=== PATIENT | male | born 1945 | race Caucasian/White ===

== ENCOUNTER 2019-09-12 09:52 | Day surgery (SDC) | payer MEDICARE, OTHER, SELFPAY ==
[2019-09-12] MEDS: sodium chloride 0.9% 1,000 ML 30 ML IV (10:11)
[2019-09-12 10:21] VITALS: BMI 23.4
[2019-09-12 10:34] VITALS: BP 161/108; PULSE 64; RESP 16; TEMP 36.3; O2SAT 99
--- NOTE | 2019-09-12 10:41 | ANES.PREANE2 ---
Pre-Anesthetic Assessment Pre-Anesthetic Assessment: Height/Weight: Height 1.73 m Weight 69.853 kg Temp Pulse Resp BP Pulse Ox 97.4 F L 64 16 161/108 99 09/12/19 10:34 09/12/19 10:34 09/12/19 10:34 09/12/19 10:34 09/12/19 10:34 Preop Diagnosis: dysphagia Proposed Procedure: Operation Date: 09/12/19 11:35 Proposed Procedures s EGD [id number]/Z12.11/R13.10(Not Applicable) - Lavell Romero MD p Colonoscopy(Not Applicable) - Lavell Romero MD Familial anesthetic complications: None Was Beta Terrell taken within 24 hours: N/A Last intake: Intake Last Liquid Date 09/12/19 Last Liquid Time 00:00 Last Solid Date 09/12/19 Last Solid Time 00:00 Social: Social History: Tobacco, No alcohol and No tobacco Exam: Pre-Anes Outpt Exam: alert, oriented x 3, clear to auscultation bilaterally and regular rate & rhythm Airway: Cervical ROM: WNL MP: 2 Dentition: Full Additional comments: full kramer Pulmonary: Pulmonary: None reported CV/HEM: CV/HEM: HTN and Murmur : : None reported Hepatic: Hepatic: None reported GI: GI: None reported Metabolic: Comments: hypgoglycemia Musc/skel: Musc/skel: None reported Neuropsych: Neuropsych: None reported Anesthetic Plan: ASA status: 3 Risk of > 500 ml blood loss (7ml/kg in children): No PFSH Anesthesia PFSH: Medical History (Updated 09/08/19 @ 10:35 by Lavell Romero MD) Benign essential hypertension Surgical History (Updated 09/08/19 @ 10:33 by Lavell Romero MD) H/O facial fracture repair History of appendectomy History of repair of rotator cuff Family History Other Cancer Diabetes Hypertension Stroke Social History Smoking and tobacco status: never smoked Alcohol intake: never Household members: spouse Housing: House Marital status: Current occupational status: retired Data Anesthesia Cardiac Studies: No Data to Display
[2019-09-12 12:02] VITALS: BP 104/57; PULSE 57; RESP 16; TEMP 36.1; O2SAT 96
[2019-09-12 12:45] VITALS: BP 134/56; PULSE 51; RESP 18; O2SAT 99
[2019-09-13 10:09] LABS: H. Pylori / CLO Test Negative
--- NOTE | 2019-10-12 12:30 | PM.OPSURHP ---
Providers/Chief Complaint Primary Care Provider: Lacey Eid APN Chief Complaint: NO DX SHOWN. History of Present Illness Lasha Maher is a 74 year old male Medications/Allergies Home Medications Medication Instructions Recorded Confirmed Last Taken Type chlorpromazine 25 mg tablet 25 mg PO Q6H 09/06/19 09/12/19 09/11/19 History hydrochlorothiazide 12.5 mg tablet 12.5 mg PO .qpm tab 09/06/19 09/12/19 09/11/19 History multivitamin,zk-usav-dnruyoar 1 tab PO DAILY 09/06/19 09/12/19 Unknown History pantoprazole 40 mg PO DAILY #30 tab 09/12/19 Unknown Rx Allergies Allergy/AdvReac Type Severity Reaction Status Date / Time oxycodone Allergy Unknown Verified 09/08/19 09:32 prednisone Allergy Unknown Verified 09/08/19 09:32 cephalexin [From Keflex] AdvReac ADR-Itching Verified 09/08/19 09:32 PFSH PFSH: Medical History (Updated 09/08/19 @ 10:35 by Lavell Romero MD) Benign essential hypertension Surgical History (Updated 09/08/19 @ 10:33 by Lavell Romero MD) H/O facial fracture repair History of appendectomy History of repair of rotator cuff Family History Other Cancer Diabetes Hypertension Stroke Social History Smoking and tobacco status: never smoked Alcohol intake: never Household members: spouse Housing: House Marital status: Current occupational status: retired Vital Signs Vitals Signs: Last Vital Signs Temp 97.0 F L 09/12/19 12:02 Pulse 51 L 09/12/19 12:45 Resp 18 09/12/19 12:45 BP 134/56 09/12/19 12:45 Pulse Ox 99 09/12/19 12:45 Coding Level of Care Code Acute Surveillance Agent for Gino Lewis
== END 2019-09-12 13:08 | disposition home or self-care (01) ==
PROVIDERS: PCP Nurse Practitioner; Visit Provider Internal Medicine
PROC: 0DJ08ZZ Inspection of Upper Intestinal Tract, Via Natural or Artificial Opening Endoscopic (ICD-10-PCS; CPT 43235; principal; 2019-09-12 11:30)
PROC: 0DJD8ZZ Inspection of Lower Intestinal Tract, Via Natural or Artificial Opening Endoscopic (ICD-10-PCS; CPT 45378; 2019-09-12 11:30)
DX: Z12.11 Encounter for screening for malignant neoplasm of colon (principal); K64.8 Other hemorrhoids; K21.0 Gastro-esophageal reflux disease with esophagitis; K22.10 Ulcer of esophagus without bleeding; K29.70 Gastritis, unspecified, without bleeding; I10 Essential (primary) hypertension
CPT/HCPCS: 12345; 43239; 45378; 87077; 88305; G0121; J2001; J2704; J7030

== ENCOUNTER 2019-12-02 12:16 | Outpatient (CLI) | payer MEDICARE, OTHER, SELFPAY ==
--- NOTE | 2019-12-02 13:00 | CT_ITS ---
WS: [id number] CT CHEST TECHNIQUE: Contrast enhanced CT of the chest with coronal and sagittal reformatted images. CLINICAL INFORMATION: sob COMPARISON: None. DLP: 836.[address] scans at [facility] use at least one of these dose optimization techniques: automat ed exposure control; mA and/or kV adjustment per patient size (includes targeted exams where dose is matched to clinical indication); or iterative reconstruction. FINDINGS: Moderate chronic emphysematous changes. No acute pulmonary infiltrates. No focal pneumonia. No pleura l fluid. Normal caliber thoracic aorta. Aortic calcification. Normal descending thoracic aorta. No mediastinal or hilar lymphadenopathy. Normal endobronchial tree. Thyroid gland is normal. No axillary lymphadeno romaine. Small esophageal hiatal hernia. Adrenal glands are normal. Mild thoracic kyphosis. Hypertrophic changes thoracic spine. CT/CT chest w con* [id number] IMPRESSION: 1. Moderate chronic emphysematous changes. No acute pulmonary infiltrates. 2. No mediastinal or hilar lymphadenopathy. 3. Small esophageal hiatal hernia. 4. Normal caliber thoracic aorta. 5. No other significant findings.
[2019-12-02 13:14] LABS: Blood Urea Nitrogen 17 mg/dL (8-23)
[2019-12-02] MEDS: iohexol 300 mg/mL 100 mL Btl IV (13:19)
== END 2019-12-02 12:17 | disposition home or self-care (01) ==
LOC: RADWPI 12:22
PROVIDERS: Family Provider Nurse Practitioner; PCP Nurse Practitioner; Visit Provider Internal Medicine
DX: R06.02 Shortness of breath (principal); J43.9 Emphysema, unspecified; K44.9 Diaphragmatic hernia without obstruction or gangrene
CPT/HCPCS: 71260; 82565; 84520; Q9967

== ENCOUNTER 2020-02-09 08:39 | Outpatient (CLI) | payer MEDICARE, OTHER, SELFPAY ==
--- NOTE | 2020-02-09 08:55 | USCV_ITS ---
Lasha Maher Age: 74 Gender: M : 1945 Exam Date: 02/09/2020 09:19 Ordering Phys: Alex Meredith MD Technologist: Shannan Burr Exam Location: [facility] [place] Indication: MURMUR BP: 172 / 88 HR: 56 Rhythm: Other Technical Quality: Good MEASUREMENTS (Male / Female) Normal Values 2D ECHO LV Diastolic Diameter PLAX 4.1 cm 4.2 - 5.9 / 3.9 - 5.3 cm LV Systolic Diameter PLAX 2.4 cm LV Chamber Size 4.4 cm IVS Diastolic Thickness 1.7 cm 0.6 - 1.0 / 0.6 - 0.9 cm IVS Systolic Thickness 2.2 cm LVPW Diastolic Thickness 1.3 cm 0.6 - 1.0 / 0.6 - 0.9 cm LVPW Systolic Thickness 1.9 cm RV Chamber Size 3.0 cm LVOT Diameter 2.0 cm LV Ejection Fraction 2D Teich 72.2 % LV Ejection Fraction MOD 2C 68.8 % LV Ejection Fraction 2C AL 70.8 % LA Diameter 3.5 cm LA Width 3.5 cm LA Height 3.6 cm RA Width 3.5 cm RA Height 3.5 cm Aorta at Sinotubular Diameter 2.4 cm M-MODE LV Diastolic Diameter MM 5.1 cm 4.2 - 5.9 / 3.9 - 5.3 cm LV Systolic Diameter MM 3.1 cm LV Ejection Fraction MM Teich 70.9 % IVS Diastolic Thickness MM 1.0 cm 0.6 - 1.0 / 0.6 - 0.9 cm IVS Systolic Thickness MM 1.3 cm LVPW Diastolic Thickness MM 1.1 cm 0.6 - 1.0 / 0.6 - 0.9 cm LVPW Systolic Thickness MM 1.8 cm RV Diastolic Diameter MM 1.8 cm Aortic Annulus Diameter 3.3 cm LA Ao Ratio MM 1.2 MV E Point Septal Separation 0.4 cm DOPPLER AV Peak Velocity 267.5 cm/s LVOT Peak Velocity 106.0 cm/s AV Area Cont Eq vti 1.3 cm squared AV Area Cont Eq pk 1.3 cm squared MV Area PHT 3.4 cm squared MV E' Velocity 46.0 cm/s TV Peak E Velocity 88.0 cm/s Right Atrial Pressure 3.0 mmHg PV Peak Velocity 80.0 cm/s FINDINGS Left Ventricle Normal left ventricular cavity size. Moderate left ventricular hypertrophy. Normal left ventricular systolic function. Left ventricular ejection fraction is estimated at 70 %. No regional wall motion abnormalities. Right Ventricle Normal right ventricular size and systolic function. Normal right ventricular systolic pressure. Right Atrium Normal right atrial size. Right atrial pressure estimated at 3 mm Hg. Left Atrium Mildly increased left atrial size. Mitral Valve Mildly thickened mitral valve. No mitral valve stenosis. Mild mitral valve regurgitation. Aortic Valve Mildly thickened and calcified trileaflet aortic valve. Mild aortic valve stenosis, mean gradient 15 mmHg, WINSOME 1.4 cm squared. Mild aortic valve regurgitation. Tricuspid Valve Structurally normal tricuspid valve. No tricuspid valve stenosis. Trace to mild tricuspid valve regurgitation. Pulmonic Valve Structurally normal pulmonic valve. No pulmonary valve stenosis. Trace pulmonary valve regurgitation. Pericardium No pericardial effusion. Normal sized inferior vena cava. Aorta Normal size aortic root and proximal ascending aorta. CONCLUSIONS 1. Normal left ventricular cavity size and systolic function. Moderate concentric left ventricular hypertrophy. Left ventricular ejection fraction is estimated at 70 %. No regional wall motion abnormalities. 2. Mild aortic valve regurgitation. 3. Right atrial pressure estimated at 3 mm Hg. 4. No intracardiac masses. 5. When compared to the prior echocardiogram dated 02/04/2017 there may not have been any significant change. Karley Lott MD (Electronically Signed) Final Date: 10 February 2020 19:49 S
== END 2020-02-09 08:40 | disposition home or self-care (01) ==
LOC: US 08:45
PROVIDERS: Family Provider Nurse Practitioner; PCP Nurse Practitioner; Visit Provider Family Medicine
DX: I35.1 Nonrheumatic aortic (valve) insufficiency (principal); I51.7 Cardiomegaly; R01.1 Cardiac murmur, unspecified
CPT/HCPCS: 93306

== ENCOUNTER 2020-08-25 15:18 | Inpatient (IN) | payer MEDICARE, OTHER, SELFPAY ==
[2020-08-25] VITALS (11 sets, daily range): BP systolic 139–173; BP diastolic 71–88; PULSE 54–67; RESP 14–18; TEMP 36.5–36.7; O2SAT 95–98; BMI 24.9
--- NOTE | 2020-08-25 15:32 | CTR_ITS ---
PROCEDURE INFORMATION: Exam: CT Head Without Contrast Exam date and time: 08/25/2020 3:40 PM Age: 75 years old Clinical indication: Speech disturbance and weakness, facial; Slurred speech; Prior surgery; Surgery date: 6+ months; Additional info: Symptoms of acute stroke TECHNIQUE: Imaging protocol: Computed tomography of the head without contrast. Total images: 211 Radiation optimization: All CT scans at this facility use at least one of these dose optimization techniques: automated exposure control; mA and/or kV adjustment per patient size (includes targeted exams where dose is matched to clinical indication); or iterative reconstruction. COMPARISON: No relevant prior studies available. RADIATION DOSE METRICS: Total DLP (mGy-cm): 923.87 FINDINGS: Brain: No evidence of active or acute intracranial pathologic process, hemorrhage, or trauma. No visible evidence of diffuse cerebral edema or generalized demyelination. No visible hyperdense or insular ribbon sign. Mild small vessel ischemic disease with senile periventricular leukomalacia. No mass effect. No midline shift. Atrophic changes not inconsistent with the patient's chronological age. Cerebral ventricles: No ventriculomegaly. Bones/joints: Unremarkable. No acute fracture. Paranasal sinuses: Chronic sinusitis with inspissated mucus. Mastoid air cells: Visualized mastoid air cells are well aerated. Soft tissues: Unremarkable. CT/CT head wo con* [id number] IMPRESSION: No evidence of active or acute intracranial pathologic process, hemorrhage, or trauma. Radiation Dose CTDIVOL = (mGy): DLP = 923.87 (mGy-cm)
--- NOTE | 2020-08-25 15:32 | XRR_ITS ---
PROCEDURE INFORMATION: Exam: XR Chest Exam date and time: 08/25/2020 4:03 PM Age: 75 years old Clinical indication: Other: Confusion; Additional info: Reduced breath sounds TECHNIQUE: Imaging protocol: XR of the chest. Views: 1 view. Total images: 1 COMPARISON: CT chest w con* [id number] 12/02/2019 1:17 PM FINDINGS: Lungs: No visible active interstitial or alveolar airspace disease. Suspected component of mild COPD/chronic bronchitis. Pleural spaces: Unremarkable. No pleural effusion. No pneumothorax. Heart/Mediastinum: Cardiac structures and configuration with mild cardiomegaly and arteriosclerosis. Bones/joints: Degenerative disease and degenerative disc disease of visualized cervical spine. XR/XR chest 1V portable [id number] IMPRESSION: Nonacute.
--- NOTE | 2020-08-25 15:32 | CTR_ITS ---
PROCEDURE INFORMATION: Exam: CT Angiography Head With Contrast, Arteriography Exam date and time: 08/25/2020 3:40 PM Age: 75 years old Clinical indication: Speech disturbance and paralysis, transient of limb; Slurred speech; Prior surgery; Surgery date: 6+ months; Surgery type: Facial; Additional info: Right sided weakness TECHNIQUE: Imaging protocol: Computed tomography angiography of the head with contrast. Exam focused on the arteries. 3D rendering (Not supervised by radiologist): MIP and/or 3D reconstructed images were created by the technologist. Total images: 855 Radiation optimization: All CT scans at this facility use at least one of these dose optimization techniques: automated exposure control; mA and/or kV adjustment per patient size (includes targeted exams where dose is matched to clinical indication); or iterative reconstruction. Contrast material: VISIPAQUE 320; Contrast volume: 95 ml; Contrast route: INTRAVENOUS (IV); COMPARISON: CT head wo con* [id number] 08/25/2020 3:55 PM RADIATION DOSE METRICS: Total DLP (mGy-cm): 2184.86 FINDINGS: ANTERIOR CIRCULATION: Right internal carotid artery: Mild atheromatous plaquing of the internal carotid artery terminus without hemodynamically significant stenosis or occlusion. Intracranial segment is patent with no significant stenosis. No aneurysm. Right middle cerebral artery: Unremarkable. No occlusion or significant stenosis. No aneurysm. Right anterior cerebral artery: Unremarkable. No occlusion or significant stenosis. No aneurysm. Left internal carotid artery: Mild atheromatous plaquing of the internal carotid artery terminus without hemodynamically significant stenosis or occlusion. Intracranial segment is patent with no significant stenosis. No aneurysm. Left middle cerebral artery: Unremarkable. No occlusion or significant stenosis. No aneurysm. Left anterior cerebral artery: Absence of the left A1 segment. Left anterior cerebral artery patent via cross-filling from a patent ACOMM. POSTERIOR CIRCULATION: Right vertebral artery: Unremarkable. No occlusion or significant stenosis. No aneurysm. Left vertebral artery: Unremarkable. No occlusion or significant stenosis. No aneurysm. Basilar artery: Unremarkable. No occlusion or significant stenosis. No aneurysm. Right posterior cerebral artery: origin of the right posterior cerebral artery. No hemodynamically significant stenosis or occlusion. Left posterior cerebral artery: Unremarkable. No occlusion or significant stenosis. No aneurysm. Paranasal sinuses: Chronic sinusitis with inspissated mucus. 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 Erosion of the floor of the right maxilla. IMPRESSION: 1. Absence of the left A1 segment. 2. Left anterior cerebral artery patent via cross-filling from a patent ACOMM. 3. Mild atheromatous plaquing of the bilateral internal carotid artery terminus without hemodynamically significant stenosis or occlusion. 4. origin of the right posterior cerebral artery which is a normal anatomical variant. 5. Chronic sinusitis with inspissated mucus. 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 PROCEDURE INFORMATION: Exam: CT Angiography Neck With Contrast Exam date and time: 08/25/2020 3:40 PM Age: 75 years old Clinical indication: Speech disturbance and paralysis, transient of limb; Slurred speech; Prior surgery; Surgery date: 6+ months; Surgery type: Facial; Additional info: Right sided weakness TECHNIQUE: Imaging protocol: Computed tomography angiography of the neck with contrast. 3D rendering (Not supervised by radiologist): MIP and/or 3D reconstructed images were created by the technologist. Radiation optimization: All CT scans at this facility use at least one of these dose optimization techniques: automated exposure control; mA and/or kV adjustment per patient size (includes targeted exams where dose is matched to clinical indication); or iterative reconstruction. Contrast material: VISIPAQUE 320; Contrast volume: 95 ml; Contrast route: INTRAVENOUS (IV); COMPARISON: CT head wo con* [id number] 08/25/2020 3:55 PM RADIATION DOSE METRICS: Total DLP (mGy-cm): 2184.86 FINDINGS: Right common carotid artery: No stenosis. No dissection or occlusion. Right internal carotid artery: No stenosis of the extracranial segment. No dissection or occlusion. Right external carotid artery: No occlusion or stenosis of the origin. Right vertebral artery: No stenosis. No dissection or occlusion. Left common carotid artery: No stenosis. No dissection or occlusion. Left internal carotid artery: No stenosis of the extracranial segment. No dissection or occlusion. Left external carotid artery: No occlusion or stenosis of the origin. Left vertebral artery: No stenosis. No dissection or occlusion. Bones/joints: No acute fracture. Degenerative disease and degenerative disc disease of the cervical spine most advanced C4/C5, C5/C6 and to a less significant degree C6/C7. Soft tissues: Prominent middle mediastinal lymph nodes within the field of view a dominant aortopulmonic node measuring 13 mm in the short axis. Calcified granulomas of antecedent disease. No significant soft tissue swelling. Lungs: Evidence of air trapping of COPD/chronic bronchitis with mild senile fibrosis. CT/CT angio headneck* [id number] IMPRESSION: 1. No stenosis or occlusion. 2. Prominent middle mediastinal lymph nodes within the field of view. 3. Calcified granulomas of antecedent disease. 4. Degenerative disease and degenerative disc disease of the cervical spine. 5. COPD/chronic bronchitis. REFERENCES: NASCET CRITERIA. The degree of internal carotid artery stenosis is based on NASCET criteria. Normal is no stenosis. Mild is less than 50% stenosis. Moderate is 50-69% stenosis. Severe is 70% to 99% stenosis. Total occlusion is no detectable patent lumen. Radiation Dose CTDIVOL = (mGy): DLP = 2184.86~2184.86 (mGy-cm)
--- NOTE | 2020-08-25 15:32 | ECG_ITS ---
[facility] Test Date: 2020-08-25 Pat Name: Lasha Maher Department: Room: Gender: Male Gin Feeder: : 1945 Requested By: Chico Espinoza Order Number: [id number] Reading MD: TWILA TODD Measurements Intervals [place] Rate: 63 P: 55 IL: 155 QRS: -1 QRSD: 102 T: 85 QT: 460 QTc: 473 Interpretive Statements SINUS RHYTHM WITH FREQUENT SUPRAVENTRICULAR PREMATURE COMPLEXES POSSIBLE LEFT ATRIAL ENLARGEMENT [-0.1mV P WAVE IN V1/V2] INCOMPLETE RIGHT BUNDLE BRANCH BLOCK [90+ ms QRS DURATION, TERMINAL R IN V1/V2, 40+ ms S IN I/aVL/V4/V5/V6] POSSIBLE LEFT VENTRICULAR HYPERTROPHY [VOLTAGE CRITERIA PLUS LAE OR QRS WIDENING] MODERATE T-WAVE ABNORMALITY, CONSIDER LATERAL ISCHEMIA [-0.1+ mV T WAVE IN I/aVL/V5/V6] No previous ECG available for comparison Electronically Signed On 08-26-2020 22:25:29 CDT by TWILA TODD [email or web address]
--- NOTE | 2020-08-25 15:36 | W.ED.NEUROSD ---
HPI - Neuro Symptoms/Deficit General: Chief Complaint: Neuro Symptoms/Deficit Stated Complaint: NEURO SYMPTOMS Time Seen by Provider: 08/25/20 15:28 History of Present Illness: HPI Narrative: The patient is a 75-year-old male with past medical history hypertension and smoker. He comes to the ER complaining of slurred speech, right arm and right leg weakness since last night around 9:30 PM. He woke today and continued having weakness and speech difficulties but continued to walk around his house. He says his right arm and leg feel heavy. He says he fell a couple times and scraped his right gonzáles but has no significant injuries. They came to the ER and he does have slurred speech, as well as weakness to his right leg and right arm. He does have movement against gravity and is able to walk. No significant facial droop Timing confirmed by: spouse Location: speech, dysarthria, right arm and right leg Severity: moderate Quality: weak Relieving factors: none Exacerbating factors: none Context: sudden onset Associated symptoms: Reports no associated symptoms; Deny chest pain Review of Systems General: Reports: 10 or more systems reviewed and unremarkable except in HPI and below Const: Denies: fatigue Eyes: Denies: change in vision, blurry vision or eye redness ENMT: Reports: other (Slurred speech); Denies: throat pain, swelling of lips/tongue, ear or mastoid pain or nasal congestion Card: Denies: chest pain, palpitations, irregular heart rhythm, edema, dyspnea on exertion or orthopnea Resp: Denies: dyspnea, productive cough or non-productive cough GI: Denies: abdominal pain, diarrhea or GI cramping : Denies: flank pain, urinary frequency or urinary urgency Musc: Denies: neck pain, back pain, extremity pain, joint pain, joint redness, limited range of motion or muscle weakness Skin/Breast: Denies: rash, pruritus, erythema, skin pain or skin tenderness Neuro: Reports: other (Weakness in right arm and leg) Psych: Denies: anxiety or depression Endo: Denies: polyuria All/Imm: Denies: urticaria, throat swelling or tongue swelling PFS ED PFSH: Medical History (Updated 08/25/20 @ 18:24 by Chico Espinoza MD) Benign essential hypertension Surgical History H/O facial fracture repair History of appendectomy History of repair of rotator cuff Family History Other Cancer Diabetes Hypertension Stroke Social History Smoking and tobacco status: never smoked Alcohol intake: never Household members: spouse Housing: House Marital status: Current occupational status: retired History of recent travel: No Physical Exam Const: COMMON NORMALS: no acute distress, average body habitus, patient oriented x3, no limitations, healthy appearing, alert and well nourished GENERAL APPEARANCE: cooperative, comfortable, well kempt and well developed ORIENTATION/CONSCIOUSNESS: Yes awake, Yes oriented to person, Yes oriented to place and Yes oriented to time HENMT: COMMON NORMALS: normocephalic, external ears normal and Normal external nose present HEAD & SCALP: normal to inspection and normocephalic NOSE: Normal external nose present EXTERNAL EAR: Yes external ears normal MOUTH: Normal oral and palatal mucosa present THROAT: posterior oropharynx normal OTHER: The patient has significant dysarthria Eye: COMMON NORMALS: Equal, round and reactive pupils present and EOMs intact bilaterally GENERAL EYE: appearance normal, both eyes and all related structures PUPIL: Yes Equal, round and reactive pupils present Neck/C-Spine: COMMON NORMALS: full ROM, no lymphadenopathy, no meningeal signs and no JVD GENERAL: Yes normal visual inspection Lymph: LYMPHATIC: no lymphadenopathy noted Chest: COMMONS NORMALS: normal inspection of the chest and normal palpation of entire chest wall Resp: COMMON NORMALS: normal respiratory effort, No retractions, No use of accessory muscles, clear to auscultation bilaterally and percussion normal EFFORT & INSPECTION: Yes able to speak in complete sentences AUSCULTATION: clear to auscultation bilaterally PERCUSSION: percussion normal Cardio: COMMON NORMALS: no JVD, regular rate, regular rhythm, S1 normal heart sound present, S2 normal heart sound present and Peripheral pulses 2+ throughout RATE: regular rate RHYTHM: regular rhythm HEART SOUNDS: S1 normal heart sound present and S2 normal heart sound present PERIPHERAL PULSES: Peripheral pulses 2+ throughout GI: COMMON NORMALS: Normal to inspection, nondistended, normoactive bowel sounds present, Soft to palpation, non-tender and no masses INSPECTION: Yes normal to inspection PALPATION: Yes Soft to palpation : COMMON NORMALS: Yes no CVA tenderness BLADDER/KIDNEY EXAM: Yes no CVA tenderness Back/Pelvis: COMMON NORMALS: no CVA tenderness, thoracic and lumbar spine normal to inspection, no thoracic nor lumbar tenderness and thoraco-lumbar ROM normal Extremity: COMMON NORMALS: normal to inspection, full ROM, capillary refill normal, no joint enlargement and no pedal edema GENERAL: Yes normal exam except as noted Neuro: COMMON NORMALS: patient oriented x3, CN's II-XII intact bilaterally, moves all extremities, no focal motor deficits and no sensory deficits noted SENSORIUM/ORIENTATION: Yes alert, Yes oriented to person, Yes oriented to place and Yes oriented to time MENINGEAL SIGNS: Yes no meningeal signs SPEECH: Other neuro speech findings (Significant dysarthria) GAIT: Yes Unable to assess gait OTHER: The patient has weakness to right upper and lower extremities. He has movement against gravity. No significant ataxia. He does have pronator drift as well. Psych: COMMON NORMALS: mental status grossly normal, Normal thought process present, cooperative and normal affect APPEARANCE: Yes well kempt ATTITUDE: Yes calm THOUGHT PROCESS: Normal thought process present Skin: COMMON NORMALS: no rashes or lesions noted GENERAL SKIN EXAM: no rashes or lesions noted Course Vital Signs: Vital signs: Vital Signs Temperature 97.9 F 08/25/20 17:58 Pulse Rate 59 L 08/25/20 17:58 Respiratory Rate 18 08/25/20 17:58 Blood Pressure 158/71 08/25/20 17:58 Pulse Oximetry 95 08/25/20 17:58 MDM - Neuro Symptoms/Deficit MDM Narrative: Medical decision making narrative: The patient is having a right-sided stroke based on his symptoms. NIH scale is 5. Symptom onset 9:30 PM last night which is well outside of the window for TPA. CT head and head and neck CT angiogram showed no significant defects. Discussed with [facility] neurologist Dr. Griffin. She recommended keeping for observation and MRI, A1c, lipid panel, echo, loop monitor for 30 days, baby aspirin, statin, Lipitor. Discussed with Dr. Johns who accepts for observation. Lab Data: Labs: Lab Results 08/25/20 08/25/20 08/25/20 Range/Units 16:03 16:05 16:05 WBC 9.4 (4.0-10.0) 10^3/ uL RBC 4.46 (4.1-5.3) 10^6/u L Hgb 12.6 (11.7-16.6) g/dL Hct 38.2 L (42.0-52.0) % MCV 85.7 (80-94) fL MCH 28.3 (28.0-34.0) pg MCHC 33.0 (30.0-36.0) g/dL RDW 13.2 (12.1-15.1) % Plt Count 194 (130-400) 10^3/c mm MPV 9.8 (7.4-10.4) fL Neut % (Auto) 80.7 % Lymph % (Auto) 10.9 % Kingfisher % (Auto) 6.2 % Eos % (Auto) 1.2 % Baso % (Auto) 0.5 % Neut # (Auto) 7.61 (1.8-7.7) 10^3/u L Lymph # (Auto) 1.0 (0.8-4.8) 10^3/u L Kingfisher # (Auto) 0.6 (0.2-0.9) 10^3/u L Eos # (Auto) 0.1 (0.0-0.8) 10^3/u L Baso # (Auto) 0.1 (0.0-0.1) 10^3/u L Nucleated RBC % (a uto) 0 % Nucleated RBCs # 0.0 /100WBC PT (12.1-14.9) SECO NDS INR (0.8-1.2) APTT (23.9-36.7) SECO NDS Sodium 138 (136-145) mmol/L Potassium 3.8 (3.5-5.1) mmol/L Chloride 103 (98-107) mmol/L Carbon Dioxide 26 (22-29) mmol/L Anion Gap 12.8 (5-19) BUN 17 (8-23) mg/dL Creatinine 0.9 (0.7-1.2) mg/dL GFR Calculation Not Reportable Glucose 101 (65-115) mg/dL POC Glucose 104 (70-110) mg/dL Calculated Osmolal ity 288 (285-295) mOsm/k g Calcium 8.9 (8.5-10.5) mg/dL Total Bilirubin 0.6 (0.15-1.2) mg/dL AST 29 (0-40) U/L ALT 26 (0-41) U/L Alkaline Phosphata se 66 (40-130) IU/L Total Protein 6.5 L (6.6-8.7) g/dL Albumin 4.2 (3.5-5.2) g/dL Globulin 2.3 (1.3-4.6) g/dL 08/25/20 Range/Units 16:22 WBC (4.0-10.0) 10^3/ uL RBC (4.1-5.3) 10^6/u L Hgb (11.7-16.6) g/dL Hct (42.0-52.0) % MCV (80-94) fL MCH (28.0-34.0) pg MCHC (30.0-36.0) g/dL RDW (12.1-15.1) % Plt Count (130-400) 10^3/c mm MPV (7.4-10.4) fL Neut % (Auto) % Lymph % (Auto) % Kingfisher % (Auto) % Eos % (Auto) % Baso % (Auto) % Neut # (Auto) (1.8-7.7) 10^3/u L Lymph # (Auto) (0.8-4.8) 10^3/u L Kingfisher # (Auto) (0.2-0.9) 10^3/u L Eos # (Auto) (0.0-0.8) 10^3/u L Baso # (Auto) (0.0-0.1) 10^3/u L Nucleated RBC % (a uto) % Nucleated RBCs # /100WBC PT 14.00 (12.1-14.9) SECO NDS INR 1.05 (0.8-1.2) APTT 31.4 (23.9-36.7) SECO NDS Sodium (136-145) mmol/L Potassium (3.5-5.1) mmol/L Chloride (98-107) mmol/L Carbon Dioxide (22-29) mmol/L Anion Gap (5-19) BUN (8-23) mg/dL Creatinine (0.7-1.2) mg/dL GFR Calculation Glucose (65-115) mg/dL POC Glucose (70-110) mg/dL Calculated Osmolal ity (285-295) mOsm/k g Calcium (8.5-10.5) mg/dL Total Bilirubin (0.15-1.2) mg/dL AST (0-40) U/L ALT (0-41) U/L Alkaline Phosphata se (40-130) IU/L Total Protein (6.6-8.7) g/dL Albumin (3.5-5.2) g/dL Globulin (1.3-4.6) g/dL Discharge Plan Discharge Patient Disposition: Placed in Observation Admit Provider: Dexter Johns Clinical Impression: Cerebrovascular accident Coding Level of Care Code ED Applications Consultant for Марияg Fwd Exam Comprehensive
[2020-08-25] MEDS: iodixanol 320 mg/mL 100mL Btl IV (15:47)
[2020-08-25 16:08] LABS: Glucose Point of Care 104 mg/dL (70-110)
[2020-08-25 16:19] LABS: Basophils # 0.1 10^3/uL (0.0-0.1); Basophils % 0.5 %; Eosinophils # 0.1 10^3/uL (0.0-0.8); Eosinophils % 1.2 %; Hematocrit 38.2 % (42.0-52.0); Hemoglobin 12.6 g/dL (11.7-16.6); Lymphocytes % 10.9 %; Mean Corpuscular Hemoglobin 28.3 pg (28.0-34.0); Mean Corpuscular Volume 85.7 fL (80-94); Mean Platelet Volume 9.8 fL (7.4-10.4); Monocytes # 0.6 10^3/uL (0.2-0.9); Monocytes % 6.2 %; Neutrophils # 7.61 10^3/uL (1.8-7.7); Neutrophils % 80.7 %; Nucleated Red Blood Cells % 0 %; Platelet Count 194 10^3/cmm (130-400); Red Blood Count 4.46 10^6/uL (4.1-5.3); Red Cell Distribution Width 13.2 % (12.1-15.1); White Blood Count 9.4 10^3/uL (4.0-10.0)
[2020-08-25 16:45] LABS: INR 1.05 (0.8-1.2)
[2020-08-25 16:48] LABS: Partial Thromboplastin Time 31.4 SECONDS (23.9-36.7)
[2020-08-25 17:00] LABS: Alanine Aminotransferase 26 U/L (0-41); Albumin Level 4.2 g/dL (3.5-5.2); Alkaline Phosphatase 66 IU/L (40-130); Anion Gap 12.8 (5-19); Aspartate Amino Transferase 29 U/L (0-40); Blood Urea Nitrogen 17 mg/dL (8-23); Calcium 8.9 mg/dL (8.5-10.5); Carbon Dioxide 26 mmol/L (22-29); Chloride 103 mmol/L (98-107); Globulin 2.3 g/dL (1.3-4.6); Glucose 101 mg/dL (65-115); Osmolality Calculated 288 mOsm/kg (285-295); Potassium 3.8 mmol/L (3.5-5.1); Sodium 138 mmol/L (136-145); Total Bilirubin 0.6 mg/dL (0.15-1.2); Total Protein 6.5 g/dL (6.6-8.7)
--- NOTE | 2020-08-25 18:05 | P.HP_ITS ---
Providers/Chief Complaint Admitting Physician: Dexter Johns MD Primary Care Provider: Lacey Eid APN Chief Complaint: NEURO SYMPTOMS History of Present Illness Lasha Maher is a 75 year old male with past medical history of hypertension and GERD, came in with chief complaint of right-sided leg and arm weakness started last evening, is also complaining of slurred speech, and unsteady gait ,patient denies any, headache, palpitation, dizziness, chest pain shortness of breath, nausea vomiting. Upon arrival in the ER he was worked up for above-mentioned complaint. CT head without contrast: No acute intracranial pathology, CTA head and neck: No significant stenosis. EKG:no acute ST-T wave changes, incomplete right bundle branch, LVH. CBC, CMP is normal. Patient was discussed with on-call neurologist at [facility] for acute CVA, he was not a TPA candidate, it has been advised, to keep the patient, and do further work-up. 2D echo done: 01/2020: Normal left ventricular cavity size and systolic function. Moderate concentric left ventricular hypertrophy.Left ventricular ejection fraction is estimated at 70 %. No regional wall motion abnormalities.Mild mitral valve regurgitation.Mild aortic valve stenosis, mean gradient 15 mmHg, WINSOME 1.4 cm squared. Mild aortic valve regurgitation. Review of Systems Const: Denies: fever(s), chills, body aches, change in appetite or diaphoresis Card: Denies: palpitations, edema, swelling of feet/ankles, dyspnea on exertion, orthopnea or leg pain with exertion Resp: Denies: dyspnea, productive cough, wheezing or pain on inspiration GI: Denies: abdominal pain, nausea, vomiting, diarrhea or constipation : Denies: flank pain or difficulty urinating Musc: Denies: back pain, extremity pain or extremity swelling Neuro: Denies: headache(s) or confusion Medications/Allergies Home Medications Medication Instructions Recorded Confirmed Last Taken Type hydrochlorothiazide 12.5 mg tablet 12.5 mg PO BEDTIME tab 09/06/19 08/25/20 08/24/20 History pantoprazole 40 mg tablet,delayed 40 mg PO BID #60 tab 10/12/19 08/25/20 08/24/20 Rx release metoclopramide HCl 5 mg PO TID 08/25/20 08/25/20 Unknown History dqlfuktauczg-iwjgitcj-cjlagz 1 tab PO DAILY 08/25/20 08/25/20 08/24/20 History [Multivitamin 50 Plus] Allergies Allergy/AdvReac Type Severity Reaction Status Date / Time oxycodone Allergy Unknown Verified 08/25/20 15:26 prednisone Allergy Unknown Verified 08/25/20 15:26 cephalexin [From Keflex] AdvReac ADR-Itching Verified 08/25/20 15:26 PFSH Acute PFSH: Medical History (Updated 08/25/20 @ 18:24 by Chico Espinoza MD) Benign essential hypertension Surgical History H/O facial fracture repair History of appendectomy History of repair of rotator cuff Family History Other Cancer Diabetes Hypertension Stroke Social History Smoking and tobacco status: never smoked Alcohol intake: never Household members: spouse Housing: House Marital status: Current occupational status: retired History of recent travel: No Vitals/I&O/Wt Last Vital Signs Temp 97.9 F 08/25/20 17:58 Pulse 59 L 08/25/20 17:58 Resp 18 08/25/20 17:58 BP 158/71 08/25/20 17:58 Pulse Ox 95 08/25/20 17:58 Weight last 48 hrs Weight 74.389 kg Physical Exam Const: COMMON NORMALS: patient oriented x3 HENMT: COMMON NORMALS: normocephalic and atraumatic Chest: COMMONS NORMALS: normal inspection of the chest CHEST: Yes Symmetrical chest wall rise Resp: COMMON NORMALS: clear to auscultation bilaterally AUSCULTATION: clear to auscultation bilaterally Cardio: COMMON NORMALS: regular rate, regular rhythm, S1 normal heart sound present, S2 normal heart sound present, No gallops present (Cardio), No rub (Cardio) and Peripheral pulses 2+ throughout RATE: regular rate RHYTHM: regular rhythm HEART SOUNDS: S1 normal heart sound present and S2 normal heart sound present PERIPHERAL PULSES: Peripheral pulses 2+ throughout OTHER: Ejection systolic murmur present in aortic area. PSM in mitral area GI: COMMON NORMALS: Normal to inspection, nondistended, normoactive bowel sounds present, Soft to palpation, non-tender, No hepatosplenomegaly present and no masses AUSCULTATION: Yes normoactive bowel sounds PALPATION: Yes Soft to palpation and Yes No hepatosplenomegaly present RECTAL EXAM: Yes deferred Extremity: COMMON NORMALS: no clubbing, cyanosis or edema and no pedal edema Neuro: COMMON NORMALS: patient oriented x3, CN's II-XII intact bilaterally, moves all extremities, no focal motor deficits and no sensory deficits noted Data : 08/25/20 16:05 08/25/20 16:05 A&P Assessment and plan (1) Cerebrovascular accident: Acute CVA/TIA : Patient is reporting right-sided weakness, on my exam motor strength is intact, sensation intact. No slurred speech, no dysphagia. 2D echo Telemetry Possible MRI brain without contrast Possible Holter monitoring Aspirin 81 mg p.o. daily Plavix 75 mg p.o. daily Lipitor 40 mg p.o. daily Status: Acute (2) Benign essential hypertension: Status: Acute (3) GERD with esophagitis: Continue Protonix 40 MG PO BID. Status: Acute Additional A&P Information CODE STATUS: Full code DVT prophylaxis: SCDs Disposition: Home Attestations Medical Necessity Statement*: Patient needs to be in hospital for management of acute CVA. Anticipated length of stay greater than 2 midnights Coding Level of Care Code Acute Engineering Mathematician for Chg Fwd Exam Detailed Diagnoses Cerebrovascular accident I63.9 Benign essential hypertension I10 GERD with esophagitis K21.0
[2020-08-25 18:15] LABS: Add Urine Microscopic? NO; Charge for UA Resulting for Rev
[2020-08-25 18:21] LABS: Bilirubin Urine Neg (Negative); Blood Urine Neg (Negative); Glucose Urine UA Norm (Normal); Ketones Urine Negative (Negative); Leukocyte Esterase Urine Negative (Negative); Nitrate Urine Negative (Negative); Protein Urine Neg (Negative); Urine Appearance Clear (CLEAR); Urine Color Yellow (Yellow); Urobilinogen Urine Norm (Negative); pH Urine 6.5 (5-7)
[2020-08-25 18:30] LABS: Amphetamines Screen Urine Negative (Negative); Barbiturates Screen Urine Negative (Negative); Benzodiazepines Screen Urine Negative (Negative); Cocaine Screen Urine Negative (Negative); Opiate Screen Urine Negative (Negative); PCP Screen Urine Negative (Negative); THC Screen Urine Negative (Negative)
[2020-08-25] MEDS: pantoprazole DR 40 mg Tablet PO (18:44)
[2020-08-25] MEDS: aspirin 81 mg EC Tablet PO (18:44)
[2020-08-25] MEDS: clopidogrel 75 mg Tablet PO (18:44)
[2020-08-25] MEDS: atorvastatin 40 mg Tablet PO (21:18)
[2020-08-25 21:19] LABS: Glucose Point of Care 111 mg/dL (70-110)
[2020-08-26] VITALS (9 sets, daily range): BP systolic 140–165; BP diastolic 68–78; PULSE 45–56; RESP 15–61; TEMP 36.4–36.8; O2SAT 95–97
--- NOTE | 2020-08-26 | USCV_ITS ---
Lasha Maher Age: 75 Gender: M : 1945 Exam Date: 08/26/2020 09:25 Ordering Phys: Dexter Johns MD Technologist: Pamela Irivn Exam Location: [facility] [place] Indication: AC Stroke BP: 150 / 69 HR: 49 Rhythm: Sinus Technical Quality: Adequate MEASUREMENTS (Male / Female) Normal Values 2D ECHO LV Diastolic Diameter PLAX 4.0 cm 4.2 - 5.9 / 3.9 - 5.3 cm LV Systolic Diameter PLAX 2.4 cm LV Chamber Size 4.5 cm IVS Diastolic Thickness 1.9 cm 0.6 - 1.0 / 0.6 - 0.9 cm IVS Systolic Thickness 2.1 cm LVPW Diastolic Thickness 1.7 cm 0.6 - 1.0 / 0.6 - 0.9 cm LVPW Systolic Thickness 2.0 cm RV Chamber Size 3.2 cm LVOT Diameter 2.1 cm LV Ejection Fraction 2D Teich 70.5 % LV Ejection Fraction MOD 2C 73.9 % LV Ejection Fraction 2C AL 75.9 % LA Diameter 3.3 cm LA Width 3.1 cm LA Height 4.5 cm RA Width 3.2 cm RA Height 5.1 cm Aorta at Sinotubular Diameter 2.5 cm M-MODE LV Diastolic Diameter MM 5.5 cm 4.2 - 5.9 / 3.9 - 5.3 cm LV Systolic Diameter MM 3.3 cm LV Ejection Fraction MM Teich 69.3 % IVS Diastolic Thickness MM 1.3 cm 0.6 - 1.0 / 0.6 - 0.9 cm IVS Systolic Thickness MM 1.5 cm LVPW Diastolic Thickness MM 1.5 cm 0.6 - 1.0 / 0.6 - 0.9 cm LVPW Systolic Thickness MM 2.1 cm RV Diastolic Diameter MM 1.3 cm Aortic Annulus Diameter 3.5 cm LA Ao Ratio MM 1.1 MV E Point Septal Separation 0.4 cm DOPPLER AV Peak Velocity 262.0 cm/s LVOT Peak Velocity 108.0 cm/s AV Area Cont Eq vti 1.5 cm squared AV Area Cont Eq pk 1.5 cm squared MV Area PHT 3.4 cm squared Mitral E to A Ratio 0.9 MV E' Velocity 43.5 cm/s Mitral E to MV E' Ratio 14.4 Mitral E to LV E' Lateral Ratio 15.8 Mitral E to LV E' Septal Ratio 13.2 TR Peak Velocity 316.0 cm/s TR Peak Gradient 39.9 mmHg TV Peak E Velocity 42.0 cm/s Right Atrial Pressure 3.0 mmHg Pulmonary Artery Systolic Pressu 42.9 mmHg PV Peak Velocity 86.0 cm/s RV Acceleration Time 0.1 s RV Ejection Time 0.3 s RV AcT/ET 0.3 FINDINGS Left Ventricle Normal left ventricular cavity size. Normal left ventricular systolic function. No regional wall motion abnormalities. Left ventricular ejection fraction is estimated at 60 %. Grade I/IV diastolic dysfunction (abnormal relaxation filling pattern), normal to mildly elevated filling pressures. Right Ventricle The right ventricle is normal in size and function. Right Atrium The right atrium is normal in size. Left Atrium Moderately increased left atrial size. Mitral Valve Moderately thickened mitral valve. No mitral valve stenosis. Moderate to severe mitral valve regurgitation. Aortic Valve Moderate aortic valve calcification. Moderate aortic valve stenosis, mean gradient 15.3 mmHg, WINSOME 1.5 cm squared. Mild aortic valve regurgitation. Tricuspid Valve Moderate tricuspid valve regurgitation. Pulmonic Valve Structurally normal pulmonic valve without significant stenosis. There is no pulmonic regurgitation. Pericardium Normal pericardium without effusion. Aorta Normal ascending aorta dimension. CONCLUSIONS 1-Normal left ventricular cavity size. Normal left ventricular systolic function. No regional wall motion abnormalities. Left ventricular ejection fraction is estimated at 60 %. Grade I/IV diastolic dysfunction (abnormal relaxation filling pattern), normal to mildly elevated filling pressures. 2-Moderate aortic valve calcification. Moderate aortic valve stenosis, mean gradient 15.3 mmHg, WINSOME 1.5 cm squared. Mild aortic valve regurgitation. 3-Moderately thickened mitral valve. No mitral valve stenosis. Moderate to severe mitral valve regurgitation. 4-Moderately increased left atrial size. 5-Right atrial pressure is around 5 mm of mercury. 6-When compared to the prior echocardiogram dated February 10, 2020 mitral valve regurgitation has worsened from moderate to severe category, otherwise no interval change. Abraham Mariano MD (Electronically Signed) Final Date: 26 Aug 2020 20:37 S
[2020-08-26 05:36] LABS: Basophils # 0.1 10^3/uL (0.0-0.1); Basophils % 0.8 %; Eosinophils # 0.2 10^3/uL (0.0-0.8); Eosinophils % 2.8 %; Hematocrit 39.5 % (42.0-52.0); Hemoglobin 12.7 g/dL (11.7-16.6); Lymphocytes # 1.4 10^3/uL (0.8-4.8); Lymphocytes % 18.4 %; Mean Corpuscular HGB Conc 32.2 g/dL (30.0-36.0); Mean Corpuscular Hemoglobin 28.3 pg (28.0-34.0); Monocytes # 0.6 10^3/uL (0.2-0.9); Monocytes % 7.1 %; Neutrophils # 5.46 10^3/uL (1.8-7.7); Neutrophils % 70.4 %; Nucleated Red Blood Cells % 0 %; Platelet Count 185 10^3/cmm (130-400); Red Blood Count 4.49 10^6/uL (4.1-5.3); Red Cell Distribution Width 13.4 % (12.1-15.1); White Blood Count 7.8 10^3/uL (4.0-10.0)
[2020-08-26 05:57] LABS: Anion Gap 13.8 (5-19); Blood Urea Nitrogen 17 mg/dL (8-23); Calcium 8.8 mg/dL (8.5-10.5); Carbon Dioxide 23 mmol/L (22-29); Chloride 103 mmol/L (98-107); Chol HDL Ratio 4.22 mg/dL (1.0-5.00); Cholesterol 156 mg/dL (0-200); Glucose 118 mg/dL (65-115); HDL Cholesterol 37 mg/dL (60-100); LDL Cholesterol Calculated 96 mg/dL (50-129); LDL HDL Ratio 2.59 RATIO (0.00-3.22); Osmolality Calculated 285 mOsm/kg (285-295); Potassium 3.8 mmol/L (3.5-5.1); Sodium 136 mmol/L (136-145); Triglycerides 114 mg/dL (0-150)
[2020-08-26] MEDS: pantoprazole DR 40 mg Tablet PO ×2 (08:17→17:25)
[2020-08-26] MEDS: aspirin 81 mg EC Tablet PO (08:17)
[2020-08-26] MEDS: clopidogrel 75 mg Tablet PO (08:17)
--- NOTE | 2020-08-26 10:33 | PC.NURSE ---
Dr beth on unit for assessment and discussion of plan of care instructions to place order for and event monitor to be placed tomorrow waiting other test results and recommendations of PT evaluation
--- NOTE | 2020-08-26 10:57 | PC.NURSE ---
Dr beth on unit verbal instructions to obtain speech eval and treat to start tomorrow
--- NOTE | 2020-08-26 11:37 | PC.CHAP ---
Pastoral Care Encounter/Spiritual Assessment Type of Contact [] Declined estate and trust tax principal visit [] Patient/Family/Request visit [] Outpatient visit [] Follow-up visit [] Physician referral [] Code/Alert [XX] Routine visit [] Staff referral [] Actively dying [] Patient sleeping [] Family support [] [] Out of room [] Palliative care [] [XX] Receiving care in room [] Pre-surgical visit [] Trauma [] Long length of stay [] ICU visit [] Other: Relational/Emotional Strength [] Patient feels connected with others/family/visitors/staff [] Distress [] Loneliness/isolation [] Abandonment Spirituality of Patient [] Person of Courtney [] Attends Zoroastrianism of their Courtney [] Believes in Prayer [] Reads Bible or Roman Catholic materials [] There are Spiritual issues to be addressed Pattern Cleaner Interventions [] Prayer [] Active listening [] Non-anxious presence [] Spiritual/emotional support [] Crisis/trauma care [] Spiritual counseling [] Bereavement support [] Provided bereavement packet [] Provided Bible/devotional materials [] Provided toy/stuffed animal, coloring book to patient or family member [] Provided Communion [] Anointing/[place] [] Salvation [] Completed spiritual assessment [] Other: Impact on Illness or Injury [] Angry [] Fearful [] Anxious [] Often cries [] Exhaustion [] Unable to work [] Unable to attend yarsani [] Unable to walk/stand [] Unable to read [] Unable to drive [] Unable to eat/drink [] Unable to sleep [] Unable to be with family [] Patient intubated [] Other: Summary Time spent with patient
--- NOTE | 2020-08-26 12:35 | P.PN_ITS ---
Subjective Subjective: Interval history: Patient is doing well, deny any new complaint.Participating with physical therapy. Vitals/I&O/Wt Last Vital Signs Temp 97.7 F 08/26/20 07:25 Pulse 49 L 08/26/20 07:25 Resp 20 H 08/26/20 07:25 BP 150/69 08/26/20 07:25 Pulse Ox 96 08/26/20 07:25 08/25/20 08/26/20 08/26/20 22:59 06:59 14:59 Intake Total 220 / 220 360 / 360 Output Total 201 / 203 Balance -2 / -2 360 / 360 Weight last 48 hrs Weight 72.711 kg Weight 74.389 kg Physical Exam Const: COMMON NORMALS: patient oriented x3 HENMT: COMMON NORMALS: normocephalic and atraumatic HEAD & SCALP: normocephalic and atraumatic Chest: COMMONS NORMALS: normal inspection of the chest CHEST: Yes Symmetrical chest wall rise Resp: COMMON NORMALS: clear to auscultation bilaterally AUSCULTATION: clear to auscultation bilaterally Cardio: COMMON NORMALS: regular rate, regular rhythm, S1 normal heart sound present, S2 normal heart sound present, No gallops present (Cardio), No rub (Cardio) and Peripheral pulses 2+ throughout RATE: regular rate RHYTHM: regular rhythm HEART SOUNDS: S1 normal heart sound present and S2 normal hear t sound present PERIPHERAL PULSES: Peripheral pulses 2+ throughout OTHER: Ejection systolic murmur present in aortic area. PSM in mitral area GI: COMMON NORMALS: Normal to inspection, nondistended, normoactive bowel sounds present, Soft to palpation, non-tender, No hepatosplenomegaly present and no masses AUSCULTATION: Yes normoactive bowel sounds PALPATION: Yes Soft to palpation and Yes No hepatosplenomegaly present RECTAL EXAM: Yes deferred Extremity: COMMON NORMALS: no clubbing, cyanosis or edema and no pedal edema Neuro: COMMON NORMALS: patient oriented x3, CN's II-XII intact bilaterally, moves all extremities, no focal motor deficits and no sensory deficits noted Data : 08/26/20 04:45 08/26/20 04:45 A&P Assessment and plan (1) Cerebrovascular accident: Acute CVA/TIA : Patient is reporting right-sided weakness, on my exam motor strength is intact, sensation intact. No slurred speech, no dysphagia. 2D echo: Done report awaited Telemetry: Sinus Bradycardia MRI brain without contrast in a.m. 2 Weeks event monitor as outpatient.Order has been placed. Aspirin 81 mg p.o. daily Plavix 75 mg p.o. daily Lipitor 40 mg p.o. daily PT/OT: Evaluation done H/H V/S N/H SPL : Evaluation done. Status: Acute (2) Benign essential hypertension: Continue HCTZ 12.5 MG PO Daily Status: Acute (3) GERD with esophagitis: Continue Protonix 40 MG PO BID. Status: Acute Additional A&P Information CODE STATUS: Full code DVT prophylaxis: SCDs Disposition: Home Attestations Medical Necessity Statement*: Patient needs to be in hospital for management of acute stroke. Coding Level of Care Code Acute Head Of Research & Insights for Gino Lewis Diagnoses Cerebrovascular accident I63.9 Benign essential hypertension I10 GERD with esophagitis K21.0
--- NOTE | 2020-08-26 15:30 | PC.NURSE ---
Dr. Johns on unit verbal instructions to order MRI of head for nuero symptoms to be done Thursday08/27/20
--- NOTE | 2020-08-26 19:52 | PC.NURSE ---
Asked patient if he wanted a bath. Patient stated. I haven't done anything to take a bath. So no.
[2020-08-26] MEDS: hydroCHLOROthiazide 25 mg Tablet 12.5 MG PO (20:07)
[2020-08-26] MEDS: atorvastatin 40 mg Tablet PO (20:08)
[2020-08-27] VITALS (9 sets, daily range): BP systolic 141–175; BP diastolic 63–94; PULSE 44–56; RESP 17–27; TEMP 36.6–36.7; O2SAT 97–100
[2020-08-27 03:52] LABS: Basophils # 0.1 10^3/uL (0.0-0.1); Basophils % 0.9 %; Eosinophils # 0.3 10^3/uL (0.0-0.8); Eosinophils % 3.7 %; Hemoglobin 13.2 g/dL (11.7-16.6); Lymphocytes # 1.4 10^3/uL (0.8-4.8); Lymphocytes % 17.2 %; Mean Corpuscular Hemoglobin 28.7 pg (28.0-34.0); Mean Platelet Volume 9.9 fL (7.4-10.4); Monocytes # 0.7 10^3/uL (0.2-0.9); Monocytes % 8.1 %; Neutrophils # 5.66 10^3/uL (1.8-7.7); Neutrophils % 69.4 %; Nucleated Red Blood Cells % 0 %; Platelet Count 186 10^3/cmm (130-400); Red Cell Distribution Width 13.2 % (12.1-15.1); White Blood Count 8.2 10^3/uL (4.0-10.0)
[2020-08-27 04:14] LABS: Anion Gap 11.9 (5-19); Blood Urea Nitrogen 17 mg/dL (8-23); Calcium 8.9 mg/dL (8.5-10.5); Carbon Dioxide 26 mmol/L (22-29); Chloride 104 mmol/L (98-107); Creatinine Clr Calc Pharmacy 68.1236; Glucose 119 mg/dL (65-115); Osmolality Calculated 289 mOsm/kg (285-295); Potassium 3.9 mmol/L (3.5-5.1); Sodium 138 mmol/L (136-145)
[2020-08-27] MEDS: pantoprazole DR 40 mg Tablet PO ×2 (09:41→17:53)
[2020-08-27] MEDS: clopidogrel 75 mg Tablet PO (09:41)
[2020-08-27] MEDS: amlodipine 10 mg Tablet PO (09:41)
[2020-08-27] MEDS: aspirin 81 mg EC Tablet PO (09:41)
--- NOTE | 2020-08-27 10:33 | PC.NURSE ---
walked pt with out walker 20 ft he was weak on right side the more he walked the weaker he got he agred to useing walker next time we walked
--- NOTE | 2020-08-27 15:49 | P.PN_ITS ---
Subjective Subjective: Interval history: Patient was examined this morning, patient son is at bedside, he is alert oriented x3, has mild slurring of his speech, no facial droop, has weakness on the right side, but significantly improved, he tells me that he can get up and go to the bedside commode, he was seen ambulating the hallways, is a 1 person assist, I have strongly recommended longterm placement, patient has agreed, will work on longterm placement Vitals/I&O/Wt Last Vital Signs Temp 97.8 F 08/27/20 14:59 Pulse 54 L 08/27/20 14:59 Resp 27 H 08/27/20 14:59 BP 141/94 08/27/20 14:59 Pulse Ox 97 08/27/20 14:59 08/27/20 08/27/20 08/27/20 06:59 14:59 22:59 Intake Total 120 / 840 720 / 720 Output Total 950 / 1250 Balance -830 / -410 720 / 720 Weight last 48 hrs Weight 72.575 kg Weight 72.711 kg Physical Exam Const: COMMON NORMALS: no acute distress and patient oriented x3 ORIENTATION/CONSCIOUSNESS: Yes oriented to person HENMT: COMMON NORMALS: normocephalic HEAD & SCALP: normocephalic Neck/C-Spine: COMMON NORMALS: no JVD Resp: COMMON NORMALS: normal respiratory effort, No retractions, No use of accessory muscles and clear to auscultation bilaterally AUSCULTATION: clear to auscultation bilaterally Cardio: COMMON NORMALS: no JVD, regular rate, regular rhythm, S1 normal heart sound present and S2 normal heart sound present RATE: regular rate RHYTHM: regular rhythm HEART SOUNDS: S1 normal heart sound present and S2 normal heart sound present GI: COMMON NORMALS: Normal to inspection, nondistended, normoactive bowel sounds present, Soft to palpation, non-tender, No hepatosplenomegaly present and no bruits PALPATION: Yes Soft to palpation and Yes No hepatosplenomegaly pre sent Extremity: COMMON NORMALS: no pedal edema Neuro: COMMON NORMALS: patient oriented x3 SENSORIUM/ORIENTATION: Yes oriented to person COORDINATION/BALANCE: [id number] test normal SPEECH: abnormal speech Details: slurred COORDINATION: [id number] test normal OTHER: Strength right upper extremity 4 out of 5 Strength right lower extremity 4-5 Mild slurring of his speech No facial droop No paresthesias Psych: COMMON NORMALS: mental status grossly normal Data : 08/27/20 03:35 08/27/20 03:35 A&P Assessment and plan (1) Cerebrovascular accident: Acute CVA : Patient is reporting mild right upper and right lower extremity weakness, slurred speech mild, no dysphagia he is unsteady on his foot, 2D echo: Severe mitral regurg, the concern is that severe mitral regurg is contributing to possible paroxysmal A. fib undetected to here, moderate aortic stenosis cta head and neck: 1. Absence of the left A1 segment. 2. Left anterior cerebral artery patent via cross-filling from a patent ACOMM. 3. Mild atheromatous plaquing of the bilateral internal carotid artery terminus without hemodynamically significant stenosis or occlusion. 4. origin of the right posterior cerebral artery which is a normal anatomical variant. Telemetry: Sinus Bradycardia MRI brain: Acute ischemia within the left parasagittal juno measuring 17 x 10 mm. Mild soft tissue edema. Likely patient's unsteady on his feet, secondary pontine stroke 2 Weeks event monitor as outpatient.Order has been placed. Aspirin 81 mg p.o. daily Plavix 75 mg p.o. daily Lipitor 40 mg p.o. daily PT/OT: Evaluation done N/H, SPL : Evaluation done. Status: Acute (2) Benign essential hypertension: Continue HCTZ 12.5 MG PO Daily , norvasc Status: Acute (3) GERD with esophagitis: Continue Protonix 40 MG PO BID. Status: Acute (4) Mitral regurgitation: -has severe mitral regurgitation -Concern is is that this is predisposing him to paroxysmal A. fib events, leading to acute CVA no A. fib events here -Discharged with event monitor -Follow-up with cardiology for PATO Status: Acute (5) Moderate aortic stenosis: Status: Acute Additional A&P Information CODE STATUS: Full code DVT prophylaxis: SCDs Disposition: Home Attestations Medical Necessity Statement*: t requires hospitalization, for acute CVA, recommend nursing placement Coding Level of Care Code Acute Global Compensation Director for Chg Fwd Diagnoses Cerebrovascular accident I63.9 Benign essential hypertension I10 GERD with esophagitis K21.0 Mitral regurgitation I34.0 Moderate aortic stenosis I35.0
--- NOTE | 2020-08-27 15:57 | MR_ITS ---
WS: [id number] MRI HEAD WITHOUT CONTRAST TECHNIQUE: Sagittal T1, T2 axial, T2 axial FLAIR, axial and coronal T1 images, axial susceptibility w eighted imaging, axial diffusion weighted images, and coronal T2 images were obtained. CLINICAL INFORMATION: nerological symptoms COMPARISON: CT August 25, 2020 FINDINGS: Patchy restricted diffusion in the left pericentral juno consistent with acute ischemia measuring 17 x 10 mm. Mild associated edema. No other foci of restricted diffusion. Moderate small vessel changes. Moderate parenchymal volume loss. Polypoid mucosal thickening with opa cification of the paranasal sinuses. Opacification the frontal sinuses and ethmoid air cells and left greater than right maxillary sinuses. Opacification of the sphenoid sinuses. Mastoid air cells are w ell aerated. Normal posterior fossa. Normal vascular flow voids at the skull base. No hemosiderin on the susceptib ly weighted images. Normal optic chiasm and pituitary infundibulum. Moderate symmetric atrophy tempor al lobes and hippocampal formations. Normal cavernous sinuses and Meckel's cave. MR/MR head wo con* [id number] IMPRESSION: 1. Acute ischemia within the left parasagittal juno measuring 17 x 10 mm. Mild soft tissue edema. 2. No other foci of acute ischemia. 3. Moderate small vessel changes with moderate parenchymal volume loss. 4. Polypoid mucosal thickening with partial opacification of the paranasal sin uses described above. Mastoid air cells are well aerated. 5. Moderate symmetric atrophy temporal lobes and hippocampal formations. 6. No hemosiderin on the susceptibly weighted images. Dr. Johns not available today. Message left for Dr. Ray at 08/27/2020 1:19 PM.
[2020-08-27] MEDS: atorvastatin 40 mg Tablet PO (20:45)
[2020-08-27] MEDS: hydroCHLOROthiazide 25 mg Tablet 12.5 MG PO (20:45)
[2020-08-28] VITALS (12 sets, daily range): BP systolic 103–159; BP diastolic 49–89; PULSE 46–71; RESP 17–31; TEMP 36.6–36.8; O2SAT 91–99
[2020-08-28 04:46] LABS: Basophils # 0.1 10^3/uL (0.0-0.1); Basophils % 0.4 %; Eosinophils # 0.1 10^3/uL (0.0-0.8); Eosinophils % 0.8 %; Hematocrit 41.3 % (42.0-52.0); Hemoglobin 13.8 g/dL (11.7-16.6); Lymphocytes # 0.8 10^3/uL (0.8-4.8); Lymphocytes % 4.7 %; Mean Corpuscular HGB Conc 33.4 g/dL (30.0-36.0); Mean Corpuscular Hemoglobin 28.5 pg (28.0-34.0); Mean Corpuscular Volume 85.3 fL (80-94); Mean Platelet Volume 9.9 fL (7.4-10.4); Monocytes % 5.9 %; Neutrophils # 15.04 10^3/uL (1.8-7.7); Neutrophils % 87.7 %; Nucleated Red Blood Cells % 0 %; Platelet Count 181 10^3/cmm (130-400); Red Blood Count 4.84 10^6/uL (4.1-5.3); Red Cell Distribution Width 13.2 % (12.1-15.1); White Blood Count 17.2 10^3/uL (4.0-10.0)
[2020-08-28 05:05] LABS: Anion Gap 13.1 (5-19); Blood Urea Nitrogen 19 mg/dL (8-23); Calcium 9.1 mg/dL (8.5-10.5); Carbon Dioxide 25 mmol/L (22-29); Chloride 101 mmol/L (98-107); Creatinine Clr Calc Pharmacy 68.1236; Glucose 127 mg/dL (65-115); Osmolality Calculated 284 mOsm/kg (285-295); Potassium 4.1 mmol/L (3.5-5.1); Sodium 135 mmol/L (136-145)
[2020-08-28] MEDS: pantoprazole DR 40 mg Tablet PO ×2 (09:04→18:45)
[2020-08-28] MEDS: amlodipine 10 mg Tablet PO (09:04)
[2020-08-28] MEDS: aspirin 81 mg EC Tablet PO (09:04)
[2020-08-28] MEDS: clopidogrel 75 mg Tablet PO (09:04)
--- NOTE | 2020-08-28 09:05 | XRR_ITS ---
PROCEDURE INFORMATION: Exam: XR Chest Exam date and time: 08/28/2020 9:21 AM Age: 75 years old Clinical indication: Shortness of breath. TECHNIQUE: Imaging protocol: XR of the chest. Views: 1 view. COMPARISON: CR XR chest 1V portable [id number] 08/25/2020 3:49 PM FINDINGS: Lungs: No pneumonia or pulmonary edema. Pleural spaces: No pleural effusion or pneumothorax. Heart/Mediastinum: The cardiac silhouette is not enlarged. The mediastinal contours are normal. Bones/joints: No acute osseous abnormality. XR/XR chest 1V portable [id number] IMPRESSION: No acute abnormality.
[2020-08-28 10:00] LABS: Procalcitonin 0.07 ng/mL (0-0.5)
[2020-08-28 10:11] LABS: C Reactive Protein 2.9 mg/L (0.0-4.9)
--- NOTE | 2020-08-28 10:56 | PM.PN ---
Subjective Subjective: Interval history: Patient was seen this morning he had weakness on the right upper extremity, right lower extremity weakness is improving, still unsteady on his feet, he has persistent slurring of his speech, no visual deficits, he tells me that he did have some chills overnight, no fevers, no cough, he is frequently incontinent of urine, no diarrhea, no abdominal pain, no chest pain, currently he is awaiting placement at [facility], he tells me that he misses his dog, he became quite emotional, and was tearing up, thanking the nurses for the care that he received thus so far Vitals/I&O/Wt Last Vital Signs Temp 97.9 F 08/28/20 07:24 Pulse 59 L 08/28/20 07:24 Resp 31 H 08/28/20 07:24 BP 114/55 08/28/20 07:24 Pulse Ox 96 08/28/20 07:24 08/27/20 08/28/20 08/28/20 22:59 06:59 14:59 Intake Total 410 / 1130 100 / 1230 360 / 360 Output Total 400 / 400 450 / 850 Balance 10 / 730 -350 / 380 360 / 360 Weight last 48 hrs Weight 72.575 kg Weight 72.575 kg Physical Exam Const: COMMON NORMALS: no acute distress and patient oriented x3 ORIENTATION/CONSCIOUSNESS: Yes oriented to person Neck/C-Spine: COMMON NORMALS: no JVD Resp: COMMON NORMALS: normal respiratory effort, No retractions, No use of accessory muscles and clear to auscultation bilaterally AUSCULTATION: clear to auscultation bilaterally Cardio: COMMON NORMALS: no JVD, regular rate, regular rhythm, S1 normal heart sound present and S2 normal heart sound present RATE: regular rate RHYTHM: regular rhythm HEART SOUNDS: S1 normal heart sound present and S2 normal heart sound present GI: COMMON NORMALS: Normal to inspection, nondistended, normoactive bowel sounds present, Soft to palpation, non-tender, No hepatosplenomegaly present and no bruits PALPATION: Yes Soft to palpation and Yes No hepatosplenomegaly present Extremity: COMMON NORMALS: no pedal edema Neuro: COMMON NORMALS: patient oriented x3 SENSORIUM/ORIENTATION: Yes oriented to person COORDINATION/BALANCE: [id number] test normal SPEECH: abnormal speech Details: slurred COORDINATION: [id number]-[id number]-ufri test normal OTHER: Strength right upper extremity 3-4 out of 5 Strength right lower extremity 4-5 slurring of his speech Positive Romberg, unsteady on his feet No facial droop No paresthesias Psych: COMMON NORMALS: mental status grossly normal Data : 08/28/20 04:30 08/28/20 04:30 Micro: Microbiology 08/28/20 09:57 Blood Culture - Preliminary Blood SPECIMEN COLLECTED 08/28/20 09:50 Blood Culture - Preliminary Blood SPECIMEN COLLECTED A&P Assessment and plan (1) Cerebrovascular accident: Acute CVA : Patient is reporting mild right upper and right lower extremity weakness, slurred speech mild, no dysphagia he is unsteady on his foot, 2D echo: Severe mitral regurg, the concern is that severe mitral regurg is contributing to possible paroxysmal A. fib undetected to here, moderate aortic stenosis cta head and neck: 1. Absence of the left A1 segment. 2. Left anterior cerebral artery patent via cross-filling from a patent ACOMM. 3. Mild atheromatous plaquing of the bilateral internal carotid artery terminus without hemodynamically significant stenosis or occlusion. 4. origin of the right posterior cerebral artery which is a normal anatomical variant. Telemetry: Sinus Bradycardia MRI brain: Acute ischemia within the left parasagittal juno measuring 17 x 10 mm. Mild soft tissue edema. Likely patient's unsteady on his feet, secondary pontine stroke 2 Weeks event monitor as outpatient.Order has been placed. Aspirin 81 mg p.o. daily Plavix 75 mg p.o. daily Lipitor 40 mg p.o. daily PT/OT: Evaluation done will require senior living placement, awaiting placement at [facility], will require 2 midnights SPL : Evaluation done. Status: Acute (2) Benign essential hypertension: Continue HCTZ 12.5 MG PO Daily , norvasc Status: Acute (3) GERD with esophagitis: Continue Protonix 40 MG PO BID. Status: Acute (4) Mitral regurgitation: -has severe mitral regurgitation -Concern is is that this is predisposing him to paroxysmal A. fib events, leading to acute CVA no A. fib events here -Discharged with event monitor -Follow-up with cardiology for PATO Status: Acute (5) Moderate aortic stenosis: Status: Acute Additional A&P Information Sinus bradycardia, asymptomatic, no lightheadedness, dizziness, no falls, continue to monitor Leukocytosis, 0.2, neutrophilic, afebrile overnight, no cough, no abdominal pain, no diarrhea, does have frequent urinary incontinence, no headache, no no neck pain -Pro-Clifton within normal limits, CRP within normal limits -Chest x-ray no focal pneumonia -UA pending -We will continue to monitor CODE STATUS: Full code DVT prophylaxis: SCDs Disposition: Home Attestations Medical Necessity Statement*: Patient requires hospitalization, for acute CVA, requiring senior living placement, also has leukocytosis of undetermined etiology Coding Level of Care Code Acute Night Shift for g Fwd Diagnoses Cerebrovascular accident I63.9 Benign essential hypertension I10 GERD with esophagitis K21.0 Mitral regurgitation I34.0 Moderate aortic stenosis I35.0
[2020-08-28] MEDS: hydroCHLOROthiazide 25 mg Tablet 12.5 MG PO (20:44)
[2020-08-28] MEDS: atorvastatin 40 mg Tablet PO (20:45)
[2020-08-29 03:50] LABS: Basophils # 0.1 10^3/uL (0.0-0.1); Basophils % 0.8 %; Eosinophils # 0.3 10^3/uL (0.0-0.8); Eosinophils % 3.7 %; Hematocrit 39.2 % (42.0-52.0); Hemoglobin 12.9 g/dL (11.7-16.6); Lymphocytes # 1.7 10^3/uL (0.8-4.8); Lymphocytes % 18.5 %; Mean Corpuscular HGB Conc 32.9 g/dL (30.0-36.0); Mean Corpuscular Hemoglobin 28.5 pg (28.0-34.0); Mean Corpuscular Volume 86.7 fL (80-94); Mean Platelet Volume 10.3 fL (7.4-10.4); Monocytes # 0.7 10^3/uL (0.2-0.9); Monocytes % 7.5 %; Neutrophils # 6.27 10^3/uL (1.8-7.7); Neutrophils % 68.6 %; Nucleated Red Blood Cells % 0 %; Platelet Count 190 10^3/cmm (130-400); Red Blood Count 4.52 10^6/uL (4.1-5.3); Red Cell Distribution Width 13.4 % (12.1-15.1); White Blood Count 9.1 10^3/uL (4.0-10.0)
[2020-08-29 03:52] VITALS: BP 117/64; PULSE 51; RESP 15; TEMP 36.6; O2SAT 98
[2020-08-29 04:13] LABS: Alanine Aminotransferase 19 U/L (0-41); Alkaline Phosphatase 75 IU/L (40-130); Aspartate Amino Transferase 17 U/L (0-40); Blood Urea Nitrogen 28 mg/dL (8-23); Calcium 8.7 mg/dL (8.5-10.5); Carbon Dioxide 28 mmol/L (22-29); Chloride 102 mmol/L (98-107); Globulin 2.5 g/dL (1.3-4.6); Glucose 129 mg/dL (65-115); Osmolality Calculated 293 mOsm/kg (285-295); Sodium 138 mmol/L (136-145); Total Bilirubin 0.4 mg/dL (0.15-1.2); Total Protein 6.5 g/dL (6.6-8.7)
[2020-08-29 06:00] VITALS: PULSE 45
[2020-08-29 08:00] VITALS: BP 141/47; PULSE 97; RESP 23; TEMP 36.8; O2SAT 97
[2020-08-29] MEDS: aspirin 81 mg EC Tablet PO (09:13)
[2020-08-29] MEDS: amlodipine 10 mg Tablet PO (09:14)
[2020-08-29] MEDS: pantoprazole DR 40 mg Tablet PO (09:14)
[2020-08-29] MEDS: clopidogrel 75 mg Tablet PO (09:14)
--- NOTE | 2020-08-29 09:39 | PM.DCS ---
Discharge Providers Date of Admission: 08/26/20 19:09 Date of Discharge: August 29, 2020 Attending Provider at Admission: Dexter Johns MD Attending Provider at Discharge: David Butcher MD Primary Care Provider: Lacey Eid APN Diagnoses at Discharge Discharge Diagnosis (1) Cerebrovascular accident: Status: Acute (2) Benign essential hypertension: Status: Acute (3) GERD with esophagitis: Status: Acute (4) Mitral regurgitation: Status: Acute (5) Moderate aortic stenosis: Status: Acute Reason for Visit Reason for Visit: NEURO SYMPTOMS 92931 Hospital Course Hospital Course This is a 75-year-old male with past medical history of hypertension, GERD, who presents to [facility] due to slurring of his speech and right-sided weakness Patient presented to [facility] for concerns for acute CVA, was not deemed a TPA candidate, neurologist at [facility] were involved in the case, CT head no acute intracranial pathology, CTA head and neck had no significant stenosis, patient was admitted to [facility] for acute left-sided CVA with right-sided weakness Acute CVA, left parasagittal juno: Patient continued to have right upper extremity weakness 3 out of 5, clumsy hand, trouble coordinating, right lower extremity strength has significantly improved to 4 out of 5, continues to have slurred speech mild, no dysphagia he is still unsteady on his feet this remains at discharge 2D echo: Severe mitral regurg, the concern is that severe mitral regurg is contributing to possible paroxysmal A. fib undetected to here, moderate aortic stenosis cta head and neck: 1. Absence of the left A1 segment. 2. Left anterior cerebral artery patent via cross-filling from a patent ACOMM. 3. Mild atheromatous plaquing of the bilateral internal carotid artery terminus without hemodynamically significant stenosis or occlusion. 4. origin of the right posterior cerebral artery which is a normal anatomical variant. Telemetry: Sinus Bradycardia MRI brain: Acute ischemia within the left parasagittal juno measuring 17 x 10 mm. Mild soft tissue edema. Likely patient's unsteady on his feet, secondary pontine stroke 4 Weeks event monitor as outpatient.Order has been placed. Dr. Lemon to follow Aspirin 81 mg p.o. daily Plavix 75 mg p.o. daily, for 18 remaining days Lipitor 40 mg p.o. daily PT/OT: Discharged to [facility], for physical therapy SPL : Will need speech therapy -Follow-up with neurology in 1 week Mitral regurgitation: -has severe mitral regurgitation -Concern is is that this is predisposing him to paroxysmal A. fib events, leading to acute CVA no A. fib events here -Discharged with event monitor -Follow-up with cardiology for PATO Sinus bradycardia, asymptomatic, discharged on event monitor Hypertension, discharged on Norvasc 10 mg daily, hydrochlorothiazide 12.5 mg Physical Exam Const: COMMON NORMALS: no acute distress and patient oriented x3 ORIENTATION/CONSCIOUSNESS: Yes oriented to person Neck/C-Spine: COMMON NORMALS: no JVD Resp: COMMON NORMALS: normal respiratory effort, No retractions, No use of accessory muscles and clear to auscultation bilaterally AUSCULTATION: clear to auscultation bilaterally Cardio: COMMON NORMALS: no JVD, regular rate, regular rhythm, S1 normal heart sound present and S2 normal heart sound present RATE: regular rate RHYTHM: regular rhythm HEART SOUNDS: S1 normal heart sound present and S2 normal heart sound present GI: COMMON NORMALS: Normal to inspection, nondistended, normoactive bowel sounds present, Soft to palpation, non-tender, No hepatosplenomegaly present and no bruits PALPATION: Yes Soft to palpation and Yes No hepatosplenomegaly present Extremity: COMMON NORMALS: no pedal edema Neuro: COMMON NORMALS: patient oriented x3 SENSORIUM/ORIENTATION: Yes oriented to person COORDINATION/BALANCE: [id number]-mc-rcyc test normal SPEECH: abnormal speech Details: slurred COORDINATION: boafrw-li-pito test normal OTHER: Strength right upper extremity 3-4 out of 5 Strength right lower extremity 4-5 slurring of his speech Positive Romberg, unsteady on his feet No facial droop No paresthesias Psych: COMMON NORMALS: mental status grossly normal Discharge Data Data Completed and Pending: Completed Studies During Hospitalization Category Date Time Status CT angio headneck * [id number] Stat Cat Scan 08/25/20 15:[address] head wo con* [id number] Stat Cat Scan 08/25/20 15:32 Completed XR chest 1V vito ble [id number] Routine Exams 08/28/20 09:05 Completed XR chest 1V vito ble [id number] Stat Exams 08/25/20 15:32 Completed MR head wo con* [id number] Routine MRI 08/27/20 15:57 Completed CV echo complete* [id number] Routine Ultrasound 08/26/20 Completed Pending at discharge Category Date Time Status CA cardiac event monitor Routine Exams 08/27/20 07:00 Ordered Blood Culture Sta t Lab 08/28/20 09:57 Results Complete Blood Co unt w/Auto AM LABS Lab 08/30/20 04:00 Ordered Complete Blood Co unt w/Auto AM LABS Lab 08/31/20 04:00 Ordered Comprehensive Met abolic Panel AM LA BS Lab 08/30/20 04:00 Ordered Comprehensive Met abolic Panel AM LA BS Lab 08/31/20 04:00 Ordered Urinalysis Routin e Lab 08/28/20 09:06 Uncollected Labs from last 24 hours 08/29/20 08/29/20 08/28/20 03:21 03:21 04:30 WBC 9.1 RBC 4.52 Hgb 12.9 Hct 39.2 L MCV 86.7 MCH 28.5 MCHC 32.9 RDW 13.4 Plt Count 190 MPV 10.3 Neut % (Auto) 68.6 Lymph % (Auto) 18.5 Fleming % (Auto) 7.5 Eos % (Auto) 3.7 Baso % (Auto) 0.8 Neut # (Auto) 6.27 Lymph # (Auto) 1.7 Fleming # (Auto) 0.7 Eos # (Auto) 0.3 Baso # (Auto) 0.1 Nucleated RBC % (a uto) 0 Nucleated RBCs # 0.0 Sodium 138 Potassium 4.0 Chloride 102 Carbon Dioxide 28 Anion Gap 12.0 BUN 28 H Creatinine 1.1 GFR Calculation Not Reportable Glucose 129 H Calculated Osmolal ity 293 Calcium 8.7 Total Bilirubin 0.4 AST 17 ALT 19 Alkaline Phosphata se 75 C-Reactive Protein 2.9 Total Protein 6.5 L Albumin 4.0 Globulin 2.5 Procalcitonin 0.07 Vitals: Last Vital Signs Temp 98.2 F 08/29/20 08:00 Pulse 97 08/29/20 08:00 Resp 23 H 08/29/20 08:00 BP 141/47 08/29/20 08:00 Pulse Ox 97 08/29/20 08:00 Discharge Plan Discharge Patient Disposition: Xfer SNF Condition: Stable Prescriptions: New aspirin 81 mg Tablet,Delayed Release (Dr/Ec) 81 mg PO DAILY 30 Days Qty: 30 RF: 0 amlodipine 10 mg Tablet 10 mg PO DAILY 30 Days Qty: 30 RF: 0 atorvastatin 40 mg Tablet 40 mg PO BEDTIME 30 Days Qty: 30 RF: 0 clopidogrel 75 mg Tablet 75 mg PO DAILY 18 Days Qty: 18 RF: 0 Continued hydrochlorothiazide 12.5 mg tablet 12.5 mg PO BEDTIME RF: 0 Multivitamin 50 Plus Tablet 1 tab PO DAILY RF: 0 Changed pantoprazole 40 mg tablet,delayed release (DR/EC) 40 mg PO DAILY Qty: 60 RF: 8 Discontinued metoclopramide HCl 5 mg tablet 5 mg PO TID RF: 0 Discharge Orders: Discharge Order (Routine); Ordered 08/29/20 Ordered By: David Butcher Other Ambulatory Orders: CA cardiac event monitor (Routine) Timeframe: 1 Day Facility: [facility] - Location: Cardiac Diagnostic Laboratory Ordered By: David Butcher Referrals: [facility] [Outside] Ana Levi MD [Physician] - 4-7 days (CVA , hospital DC) Tone Lemon M.D [Physician] - 1 month (event monitor, severe MR) Discharge Diet: Cardiac Discharge Activity: Resume usual activity Patient Instructions: How to Stop Smoking (DC), Self Care Measures After a Stroke (DC) Activity Restrictions/Additional Instructions: -Continue PT OT, need speech therapy -Needs balance training -Patient will be discharged on aspirin 81 mg daily indefinitely -Atorvastatin 40 mg daily -Plavix should be discontinued after 18 days -Follow-up with neurology in the next few days -Discharged on event monitor, follow with cardiology in 1 month Discharge Attestations Time Spent in Discharge Care*: greater than 30 min Quality Metrics Clinical Quality Measures During this hospital stay, did patient experience: None Coding Level of Care Code Acute Chg FW DC note Diagnoses Cerebrovascular accident I63.9 Benign essential hypertension I10 GERD with esophagitis K21.0 Mitral regurgitation I34.0 Moderate aortic stenosis I35.0
--- NOTE | 2020-08-29 09:43 | PC.SOCIAL ---
Pg 2 IMM Explained to pt Pg 2 IMM. No questions voiced. Provided pt a copy. Signed, dated, & timed a copy & placed in chart.
[2020-08-29 11:12] VITALS: BP 109/55; PULSE 46; RESP 17; TEMP 36.4; O2SAT 97
[2020-08-29 11:26] VITALS: BP 109/55; PULSE 46; RESP 17; TEMP 36.4; O2SAT 97
--- NOTE | 2020-08-29 11:53 | PC.NURSE ---
Patient needed to be wheeled down to heart care services prior to leaving for SNF today to get an event monitor placed. i accompanied the family and patient to heart care. Patient iV has been removed. Patient d/c papers were given to him along with jail packet. Patient VS stable upon departure.
== END 2020-08-29 11:27 | disposition skilled nursing facility (03) | DRG 65 ==
LOC: ER 16:04 → CSU 17:19
PROVIDERS: Admitting Provider Internal Medicine; Emergency Provider Family Medicine; PCP Nurse Practitioner; Visit Provider Family Medicine
DX: I63.29 Cerebral infarction due to unspecified occlusion or stenosis of other precerebral arteries (principal); G81.91 Hemiplegia, unspecified affecting right dominant side; R47.81 Slurred speech; R29.704 NIHSS score 4; I10 Essential (primary) hypertension; K21.00 Gastro-esophageal reflux disease with esophagitis, without bleeding; W19.XXXA Unspecified fall, initial encounter; I08.0 Rheumatic disorders of both mitral and aortic valves; I48.0 Paroxysmal atrial fibrillation
CPT/HCPCS: 36415; 36416; 70450; 70496; 70498; 70551; 71045; 80048; 80053; 80061; 80306; 81003; 82962; 84145; 85025; 85610; 85730; 86140; 87040; 92507; 92523; 92526; 92610; 93005; 93271; 93306; 97110; 97116; 97161; 97166; 97530; 97535; 99285; G0378; Q9967

== ENCOUNTER → 2020-09-10 12:33 | Outpatient (BNVA) | payer MEDICARE, OTHER, SELFPAY | PROVIDERS: PCP Nurse Practitioner; Referring Provider Family Medicine; Visit Provider Nurse Practitioner | DX: I69.322 Dysarthria following cerebral infarction (principal) | CPT/HCPCS: 99204 ==

== ENCOUNTER 2021-01-28 09:58 | Outpatient (CLI) | payer MEDICARE, OTHER, SELFPAY ==
--- NOTE | 2021-01-28 10:15 | USCV_ITS ---
Lasha Maher Age: 75 Gender: M : 1945 Exam Date: 01/28/2021 10:23 Ordering Phys: Tone Lemon M.D ([email or web address]) Technologist: Almaz Sanders [place] [facility] [place]ication: non rheumatic MV insufficiency BP: 128 / 88 HR: 66 Rhythm: Sinus Technical Quality: Adequate MEASUREMENTS (Male / Female) Normal Values 2D ECHO LV Diastolic Diameter PLAX 3.8 cm 4.2 - 5.9 / 3.9 - 5.3 cm LV Systolic Diameter PLAX 2.1 cm IVS Diastolic Thickness 1.1 cm 0.6 - 1.0 / 0.6 - 0.9 cm IVS Systolic Thickness 1.7 cm LVPW Diastolic Thickness 1.2 cm 0.6 - 1.0 / 0.6 - 0.9 cm LVPW Systolic Thickness 2.0 cm LVOT Diameter 2.0 cm LV Ejection Fraction 2D Teich 78.3 % LV Ejection Fraction MOD 2C 76.2 % LV Ejection Fraction 2C AL 78.0 % LA Diameter 2.5 cm LA Width 3.1 cm LA Height 4.3 cm RA Width 3.0 cm RA Height 5.2 cm Aorta at Sinotubular Diameter 3.3 cm DOPPLER AV Peak Velocity 147.0 cm/s LVOT Peak Velocity 129.0 cm/s AV Area Cont Eq vti 2.4 cm squared AV Area Cont Eq pk 2.8 cm squared MV Peak Velocity 104.0 cm/s MV Area PHT 2.9 cm squared Mitral E to A Ratio 0.6 MV E' Velocity 29.5 cm/s Mitral E to MV E' Ratio 15.1 Mitral E to LV E' Lateral Ratio 24.9 Mitral E to LV E' Septal Ratio 11.0 TR Peak Velocity 98.3 cm/s TR Peak Gradient 3.9 mmHg Right Atrial Pressure 3.0 mmHg Pulmonary Artery Systolic Pressu 6.9 mmHg PV Peak Velocity 94.0 cm/s RV Acceleration Time 0.1 s RV Ejection Time 0.3 s RV AcT/ET 0.3 FINDINGS Left Ventricle Normal left ventricular size. LV systolic function is normal with EF of 60-65%. No regional wall motion abnormalities. Grade 1 diastolic dysfunction Right Ventricle The right ventricle is normal in size and function. Right Atrium The right atrium is normal in size. Left Atrium The left atrium is normal in size. Mitral Valve Structurally normal mitral valve without significant stenosis or prolapse. There is mild mitral regurgitation. Aortic Valve Mildly thickened aortic valve. No significant aortic stenosis. There is mild to moderate aortic regurgitation. Tricuspid Valve Structurally normal tricuspid valve without significant stenosis. Mild regurgitation. Pulmonary artery systolic pressure is normal. Pulmonic Valve Structurally normal pulmonic valve without significant stenosis. There is no pulmonic regurgitation. Pericardium Normal pericardium without effusion. Aorta Normal ascending aorta dimension. CONCLUSIONS LV systolic function is normal with EF of 60-65% Grade 1 diastolic dysfunction Mild mitral regurgitation Mild to moderate aortic regurgitation Compared to prior echocardiogram from 08/26/2020, Mitral regurgitation appears to be mild and aortic regurgitation is mild to moderate on the current study. Also gradient across the aortic valve appears to be normal Tone Lemon MD (Electronically Signed) Final Date: 30 January 2021 11:48 S
== END 2021-01-28 09:59 | disposition home or self-care (01) ==
LOC: US 09:59
PROVIDERS: PCP Nurse Practitioner; Visit Provider Internal Medicine
DX: R01.1 Cardiac murmur, unspecified (principal)
CPT/HCPCS: 93306

== ENCOUNTER → 2021-12-23 15:29 | Outpatient (BNVA) | payer MEDICARE, OTHER, SELFPAY | PROVIDERS: PCP Nurse Practitioner Family; Visit Provider Internal Medicine | DX: I34.0 Nonrheumatic mitral (valve) insufficiency (principal); I63.9 Cerebral infarction, unspecified; I35.0 Nonrheumatic aortic (valve) stenosis; I10 Essential (primary) hypertension; Z87.891 Personal history of nicotine dependence | CPT/HCPCS: 99214 ==

== ENCOUNTER 2022-02-17 14:35 | Outpatient (CLI) | payer MEDICARE, OTHER, SELFPAY ==
--- NOTE | 2022-02-17 14:30 | USCV_ITS ---
Lasha Maher Age: 76 Gender: M : 1945 Exam Date: 02/17/2022 14:49 Ordering Phys: Tone Lemon M.D ([email or web address]) Technologist: Almaz Sanders Exam Location: [facility] [place] Indication: Mitral regurgitation BP: / HR: 64 Rhythm: Sinus Technical Quality: Good MEASUREMENTS (Male / Female) Normal Values 2D ECHO LV Diastolic Diameter PLAX 4.0 cm 4.2 - 5.9 / 3.9 - 5.3 cm LV Systolic Diameter PLAX 2.1 cm IVS Diastolic Thickness 1.4 cm 0.6 - 1.0 / 0.6 - 0.9 cm IVS Systolic Thickness 2.3 cm LVPW Diastolic Thickness 1.2 cm 0.6 - 1.0 / 0.6 - 0.9 cm LVPW Systolic Thickness 2.1 cm LVOT Diameter 2.0 cm LV Ejection Fraction 2D Teich 79.1 % LV Ejection Fraction MOD 2C 65.1 % LV Ejection Fraction 2C AL 65.9 % LA Diameter 2.4 cm LA Width 3.6 cm LA Height 3.8 cm RA Width 3.5 cm RA Height 4.5 cm Aorta at Sinotubular Diameter 3.5 cm M-MODE MV E Point Septal Separation 0.1 cm DOPPLER AV Peak Velocity 109.0 cm/s LVOT Peak Velocity 105.0 cm/s AV Area Cont Eq vti 2.7 cm squared AV Area Cont Eq pk 3.2 cm squared MV Peak Velocity 98.0 cm/s MV Area PHT 2.2 cm squared Mitral E to A Ratio 0.6 MV E' Velocity 26.5 cm/s Mitral E to MV E' Ratio 9.0 Mitral E to LV E' Lateral Ratio 13.0 Mitral E to LV E' Septal Ratio 6.9 TR Peak Velocity 92.0 cm/s TR Peak Gradient 3.4 mmHg Right Atrial Pressure 3.0 mmHg Pulmonary Artery Systolic Pressu 6.4 mmHg PV Peak Velocity 95.0 cm/s RV Acceleration Time 0.1 s RV Ejection Time 0.3 s RV AcT/ET 0.4 FINDINGS Left Ventricle Normal left ventricular size, systolic function and mildly increased wall thickness with basal septal hypertrophy. No regional wall motion abnormalities. Left ventricular ejection fraction is estimated at 65 %. Grade I diastolic dysfunction (abnormal relaxation filling pattern), normal to mildly elevated filling pressures. Right Ventricle Normal right ventricular size and systolic function. Right ventricular systolic pressure 6.4 mmHg. Right Atrium Normal right atrial size. Left Atrium Normal left atrial size. Mitral Valve Structurally normal mitral valve. No mitral valve stenosis. Mild mitral valve regurgitation. Aortic Valve Moderately thickened and calcified trileaflet aortic valve. Visually aortic valve appears to have mild to moderate stenosis. No aortic valve stenosis based on Doppler evaluation. Mild aortic valve regurgitation. Tricuspid Valve Structurally normal tricuspid valve. No tricuspid valve stenosis. Trace tricuspid valve regurgitation. Pulmonic Valve Pulmonic valve not well visualized. No pulmonary valve stenosis. Pericardium No pericardial effusion. Aorta Normal size aortic root and proximal ascending aorta. IVC Normal IVC dimension with >50% respiratory change of the inferior vena cava. CONCLUSIONS 1. Normal left ventricular size, systolic function and mildly increased wall thickness, with no regional wall motion abnormalities. Left ventricular ejection fraction is estimated at 65 %. Grade I diastolic dysfunction (abnormal relaxation filling pattern), normal to mildly elevated filling pressures. 2. Normal right ventricular size and systolic function. 3. Moderately thickened and calcified trileaflet aortic valve. Visually aortic valve appears to have mild to moderate stenosis. Adequate Doppler evaluation of aortic valve was not performed. 4. Mild mitral and aortic valve regurgitation. 5. When compared to study dated 01/28/2021, visually there appears to be mild to moderate degree of aortic stenosis now. Karley Lott MD (Electronically Signed) Final Date: 24 February 2022 09:58 S
== END 2022-02-17 14:36 | disposition home or self-care (01) ==
LOC: RAD 14:37
PROVIDERS: PCP Nurse Practitioner Family; Visit Provider Internal Medicine
DX: I34.0 Nonrheumatic mitral (valve) insufficiency (principal); I35.1 Nonrheumatic aortic (valve) insufficiency
CPT/HCPCS: 93306

== ENCOUNTER → 2022-06-24 15:07 | Outpatient (BNVA) | payer MEDICARE, OTHER, SELFPAY | PROVIDERS: PCP Nurse Practitioner Family; Visit Provider Internal Medicine | DX: R07.9 Chest pain, unspecified (principal); I34.0 Nonrheumatic mitral (valve) insufficiency; Z86.73 Personal history of transient ischemic attack (TIA), and cerebral infarction without residual deficits; I35.0 Nonrheumatic aortic (valve) stenosis; I10 Essential (primary) hypertension; Z87.891 Personal history of nicotine dependence | CPT/HCPCS: 99214 ==

== ENCOUNTER 2022-07-25 09:20 | Emergency (ER) | payer MEDICARE, OTHER, SELFPAY ==
[2022-07-25 09:39] VITALS: BP 140/63; PULSE 57; RESP 14; O2SAT 94
--- NOTE | 2022-07-25 10:12 | ED_ITS ---
HPI - Back Pain/Injury General: Chief Complaint: Back Pain/Injury Stated Complaint: possible kidney stone Time Seen by Provider: 07/25/22 09:45 History of Present Illness: Patient is a 77-year-old male comes to the ED with left flank pain. Patient does have a history of kidney stones. Symptoms started approximate 3 to 4 days ago. Pain is located in the left flank and he describes the pain as a sharp stabbing type pain that comes and goes all throughout the day. Currently here in the ED he is not having any flank pain but says that if he moves a certain way it may cause pain. Denies any fall, injury or trauma to cause pain. He endorses being swollen on his left flank are a as well. He has been having normal daily bowel movements. Denies any fevers, chills, nausea/vomiting, abdominal pain, dysuria, hematuria, constipation, diarrhea or blood in stool. Associated symptoms: Deny abdominal pain, chills, dysuria, fatigue, fever(s), h ematuria, nausea or vomiting Review of Systems Const: Denies: fever(s), chills or fatigue Eyes: Denies: change in vision or eye discomfort ENMT: Denies: throat pain, odynophagia, nasal discharge or nasal congestion Card: Denies: chest pain, palpitations, edema, swelling of feet/ankles, dyspnea on exertion or orthopnea Resp: Denies: dyspnea, productive cough or non-productive cough GI: Denies: abdominal pain, nausea, vomiting, diarrhea, constipation or hematochezia : Reports: flank pain (Left flank); Denies: difficulty urinating, dysuria or hematuria Musc: Denies: neck pain, back pain or extremity swelling Skin/Breast: Denies: rash or new lesions Neuro: Denies: headache(s), numbness in extremities or weakness in extremities PFSH ED PFSH: Medical History Benign essential hypertension Impingement syndrome of right shoulder Mitral regurgitation Moderate aortic stenosis Osteoarthritis Surgical History H/O facial fracture repair History of appendectomy History of repair of rotator cuff Family History Other Cancer Diabetes Hypertension Stroke Social History Smoking and tobacco status: former smoker Alcohol intake: never Household members: spouse Housing: House Marital status: Current occupational status: retired Physical Exam 2 Const: COMMON NORMALS: no acute distress, patient oriented x3 and alert HENMT: COMMON NORMALS: normocephalic HEAD & SCALP: normocephalic MOUTH: Normal oral and palatal mucosa present THROAT: posterior oropharynx normal and uvula midline Neck/C-Spine: COMMON NORMALS: supple GENERAL: Yes normal visual inspection Resp: COMMON NORMALS: normal respiratory effort, No retractions, No use of accessory muscles and clear to auscultation bilaterally AUSCULTATION: clear to auscultation bilaterally Cardio: COMMON NORMALS: regular rate, regular rhythm, S1 normal heart sound present, S2 normal heart sound present, No gallops present (Cardio), No clicks present (Cardio), No murmurs present (Cardio) and Peripheral pulses 2+ throughout RATE: regular rate RHYTHM: regular rhythm HEART SOUNDS: S1 normal heart sound present and S2 normal heart sound present PERIPHERAL PULSES: Peripheral pulses 2+ throughout GI: COMMON NORMALS: Normal to inspection, nondistended, normoactive bowel sounds present, Soft to palpation, non-tender and no masses PALPATION: Yes Soft to palpation : COMMON NORMALS: Yes no CVA tenderness BLADDER/KIDNEY EXAM: Yes no CVA tenderness Back/Pelvis: COMMON NORMALS: no CVA tenderness Extremity: COMMON NORMALS: normal to inspection Neuro: COMMON NORMALS: patient oriented x3 SENSORIUM/ORIENTATION: Yes alert GAIT: Yes Normal gait present Skin: GENERAL SKIN EXAM: dry skin Course Vital Signs: Vital signs: Vital Signs Pulse Rate 54 L 07/25/22 13:01 Respiratory Rate 16 07/25/22 13:01 Blood Pressure 130/65 07/25/22 13:01 Pulse Oximetry 96 07/25/22 13:01 Oxygen Delivery Me thod 07/25/22 09:39 MDM - Back Pain/Injury Medical Decision Making Patient is a 77-year-old male comes to the ED with episodes of left flank pain. He has a history of kidney stone. Pain comes and goes and worsens with certain movements. Vitals are stable. Exam is benign. Labs are all unremarkable and CT abdomen pelvis showed no acute findings but did note an enlarged prostate which I told patient about told him to follow-up with his PCP for further evaluation prostate. I think patient's pain is likely muscular in nature. He was diagnosed with left flank pain and was stable for discharge home. Sent home with a prescription for muscle relaxer. Told to follow-up with his PCP within a week for reevaluation. Return to ED precautions given. Patient understood and agreed with plan. Labs I reviewed the patient's lab results. 07/25/22 10:14 07/25/22 10:14 Radiology Impressions Abdomen/Pelvis CT 07/25/22 10:15 IMPRESSION: 1. No hydronephrosis in either kidney. No obstructing renal or ureteral calculi. 2. Small esophageal hiatal hernia. 3. Bilateral renal cysts some are too small to characterize. 4. Enlarged prostate measuring 5.3 CM. Recommend correlation PSA. 5. Sigmoid diverticulosis. No evidence of acute diverticulitis. 6. Small RIGHT dorsal bladder diverticulum measuring 15 mm. Laboratory Results WBC 8.4 10^3/uL (4.0-10.0) 07/25/22 10:14 RBC 4.36 10^6/uL (4.1-5.3) 07/25/22 10:14 Hgb 12.7 g/dL (11.7-16.6) 07/25/22 10:14 Hct 37.8 % (42.0-52.0) L 07/25/22 10:14 MCV 86.7 fl (80-94) 07/25/22 10:14 MCH 29.1 pg (28.0-34.0) 07/25/22 10:14 MCHC 33.6 g/dL (30.0-36.0) 07/25/22 10:14 RDW 13.3 % (12.1-15.1) 07/25/22 10:14 Plt Count 198 10^3/cmm (130-400) 07/25/22 10:14 MPV 9.7 fL (7.4-10.4) 07/25/22 10:14 Neut % (Auto) 74.5 % 07/25/22 10:14 Lymph % (Auto) 14.9 % 07/25/22 10:14 [place] % (Auto) 6.4 % 07/25/22 10:14 Eos % (Auto) 2.7 % 07/25/22 10:14 Baso % (Auto) 1.0 % 07/25/22 10:14 Neut # (Auto) 6.26 10^3/uL (1.8-7.7) 07/25/22 10:14 Lymph # (Auto) 1.3 10^3/uL (0.8-4.8) 07/25/22 10:14 [place] # (Auto) 0.5 10^3/uL (0.2-0.9) 07/25/22 10:14 Eos # (Auto) 0.2 10^3/uL (0.0-0.8) 07/25/22 10:14 Baso # (Auto) 0.1 10^3/uL (0.0-0.1) 07/25/22 10:14 Nucleated RBC % (auto) 0 % 07/25/22 10:14 Nucleated RBCs # 0.0 /100WBC 07/25/22 10:14 Sodium 139 mmol/L (136-145) 07/25/22 10:14 Potassium 4.3 mmol/L (3.5-5.1) 07/25/22 10:14 Chloride 107 mmol/L (98-107) 07/25/22 10:14 Carbon Dioxide 24 mmol/L (22-29) 07/25/22 10:14 Anion Gap 12.3 (5-19) 07/25/22 10:14 BUN 22 mg/dL (8-23) 07/25/22 10:14 Creatinine 1.1 mg/dL (0.7-1.2) 07/25/22 10:14 GFR Calculation Not Reportable 07/25/22 10:14 Glucose 107 mg/dL (65-115) 07/25/22 10:14 Calculated Osmolality 292 mOsm/kg (285-295) 07/25/22 10:14 Calcium 9.2 mg/dL (8.5-10.5) 07/25/22 10:14 Total Bilirubin 0.7 mg/dL (0.15-1.2) 07/25/22 10:14 AST 24 U/L (0-40) 07/25/22 10:14 ALT 18 U/L (0-41) 07/25/22 10:14 Alkaline Phosphatase 74 U/L (40-130) 07/25/22 10:14 Total Protein 6.7 g/dL (6.6-8.7) 07/25/22 10:14 Albumin 4.1 g/dL (3.5-5.2) 07/25/22 10:14 Globulin 2.6 g/dL (1.3-4.6) 07/25/22 10:14 Lipase 43 U/L (13-60) 07/25/22 10:14 Urine Color Yellow (Yellow) 07/25/22 11:34 Urine Appearance Clear (CLEAR) 07/25/22 11:34 Urine pH 6 (5-7) 07/25/22 11:34 Ur Specific [place] 1.015 (1.005-1.030) 07/25/22 11:34 Urine Protein Neg (Negative) 07/25/22 11:34 Urine Glucose (UA) Norm (Normal) 07/25/22 11:34 Urine Ketones Negative (Negative) 07/25/22 11:34 Urine Blood Neg (Negative) 07/25/22 11:34 Urine Nitrate Negative (Negative) 07/25/22 11:34 Urine Bilirubin Neg (Negative) 07/25/22 11:34 Urine Urobilinogen Norm mg/dL (Negative) 07/25/22 11:34 Ur Leukocyte Esterase Negative (Negative) 07/25/22 11:34 Discharge Plan Discharge Patient Disposition: Home Clinical Impression: Acute left flank pain Condition: Stable Prescriptions: New methocarbamol 750 mg tablet 750 mg PO Q8H PRN (Reason: Muscle spasms and pain) Qty: 20 0RF No Action atorvastatin 40 mg tablet 40 mg PO DAILY Qty: 90 3RF aspirin 81 mg tablet,chewable 81 mg PO DAILY acetaminophen [Tylenol] 325 mg tablet 325 mg PO QID PRN (Reason: Pain) clopidogrel 75 mg tablet 75 mg PO DAILY amlodipine 10 mg tablet 10 mg PO DAILY pantoprazole 40 mg tablet,delayed release (DR/EC) 40 mg PO DAILY Multi-Vitamin Tablet 1 tab PO DAILY hydrochlorothiazide 12.5 mg capsule 12.5 mg PO DAILY Flonase 50 mcg/actuation [place],Suspension 2 spray INTRANASAL BID Rx Instructions: administer into each nostril Discharge Orders: Discharge ED (Routine); Ordered 07/25/22 Ordered By: Mark Niño Referrals: Burns,Brandy, AIRBR[employer] ARTIST TECHNICAL [Primary Care Provider] - Discharge Diet: Regular Discharge Activity: Increase activity as tolerated Patient Instructions: Flank Pain (ED) Activity Restrictions/Additional Instructions: Follow-up with medical provider as directed in the next 5 to 7 days for reevaluation. Talk with your PCP for further outpatient evaluation of enlarged prostate. Take medications as prescribed. Return to the ER or your medical provider if condition worsens. Please read and understand discharge instructions. Thank you for choosing [facility] for your healthcare needs today. Please realize this is an emergency room and that we are providing you with a medical screening exam and this may not be complete and all inclusive of all the testing and or work up that you may need to determine your ailment or severity of your illness. It is very important that you follow up as instructed or that you return to the Emergency Department should you have concerns or if your condition changes or worsens in any way. Coding Level of Care Code ED Airplane Refueler for Gino Lewis
--- NOTE | 2022-07-25 10:15 | CT_ITS ---
WS: [id number] CT ABDOMEN PELVIS TECHNIQUE: Noncontrast CT of the abdomen and pelvis with coronal and sagittal reformatted images. CLINICAL INFORMATION: left flank pain COMPARISON: CT 2010 DLP: 444.[address] scans at [facility] use at least one of these dose optimization techniques: automated e xposure control; mA and/or kV adjustment per patient size (includes targeted exams where dose is matc hed to clinical indication); or iterative reconstruction. FINDINGS: Lung bases are well aerated. Noncontrast liver is normal. Normal noncontrast spleen. Noncontrast panc reas is normal. Splenic artery calcification. Normal gallbladder. Adrenal glands are normal. Normal c aliber abdominal aorta. Adrenal glands are normal. No hydronephrosis in either kidney. Incidental LEF T peripelvic cysts. No obstructing renal or ureteral calculi. Bilateral renal cysts. Some are too small to characterize. Moderate spondylitic changes lumbar spine with pedicle screw fixation L4-L5. Interbody fusion graft L 4-L5. Enlarged prostate measuring 5.3 CM. Tiny cystocele. Small RIGHT bladder diverticulum measuring 15 mm. Fat-containing RIGHT inguinal hernia. CT/CT kidney stone [id number] IMPRESSION: 1. No hydronephrosis in either kidney. No obstructing renal or ureteral calcul i. 2. Small esophageal hiatal hernia. 3. Bilateral renal cysts some are too small to characterize. 4. Enlarged prostate measuring 5.3 CM. Recommend correlation PSA. 5. Sigmoid diverticulosis. No evidence of acute diverticulitis. 6. Small RIGHT dorsal bladder diverticulum measuring 15 mm.
[2022-07-25 10:24] LABS: Basophils # 0.1 10^3/uL (0.0-0.1); Eosinophils # 0.2 10^3/uL (0.0-0.8); Eosinophils % 2.7 %; Hematocrit 37.8 % (42.0-52.0); Hemoglobin 12.7 g/dL (11.7-16.6); Lymphocytes # 1.3 10^3/uL (0.8-4.8); Lymphocytes % 14.9 %; Mean Corpuscular HGB Conc 33.6 g/dL (30.0-36.0); Mean Corpuscular Hemoglobin 29.1 pg (28.0-34.0); Mean Corpuscular Volume 86.7 fl (80-94); Mean Platelet Volume 9.7 fL (7.4-10.4); Monocytes # 0.5 10^3/uL (0.2-0.9); Monocytes % 6.4 %; Neutrophils # 6.26 10^3/uL (1.8-7.7); Neutrophils % 74.5 %; Nucleated Red Blood Cells % 0 %; Platelet Count 198 10^3/cmm (130-400); Red Blood Count 4.36 10^6/uL (4.1-5.3); Red Cell Distribution Width 13.3 % (12.1-15.1); White Blood Count 8.4 10^3/uL (4.0-10.0)
[2022-07-25 10:42] LABS: Alanine Aminotransferase 18 U/L (0-41); Albumin Level 4.1 g/dL (3.5-5.2); Alkaline Phosphatase 74 U/L (40-130); Anion Gap 12.3 (5-19); Aspartate Amino Transferase 24 U/L (0-40); Blood Urea Nitrogen 22 mg/dL (8-23); Calcium 9.2 mg/dL (8.5-10.5); Carbon Dioxide 24 mmol/L (22-29); Chloride 107 mmol/L (98-107); Globulin 2.6 g/dL (1.3-4.6); Glucose 107 mg/dL (65-115); Lipase 43 U/L (13-60); Osmolality Calculated 292 mOsm/kg (285-295); Potassium 4.3 mmol/L (3.5-5.1); Sodium 139 mmol/L (136-145); Total Bilirubin 0.7 mg/dL (0.15-1.2); Total Protein 6.7 g/dL (6.6-8.7)
[2022-07-25 10:45] VITALS: BP 122/67; PULSE 57; O2SAT 93
[2022-07-25 11:31] VITALS: BP 157/61; PULSE 57; O2SAT 97
[2022-07-25 11:42] LABS: Add Urine Microscopic? NO; Charge for UA Resulting for Rev
[2022-07-25 12:13] LABS: Bilirubin Urine Neg (Negative); Blood Urine Neg (Negative); Glucose Urine UA Norm (Normal); Ketones Urine Negative (Negative); Leukocyte Esterase Urine Negative (Negative); Nitrate Urine Negative (Negative); Protein Urine Neg (Negative); Specific Gravity, Urine 1.015 (1.005-1.030); Urine Appearance Clear (CLEAR); Urine Color Yellow (Yellow); Urobilinogen Urine Norm (Negative); pH Urine 6 (5-7)
[2022-07-25 13:01] VITALS: BP 130/65; PULSE 54; RESP 16; O2SAT 96
== END 2022-07-25 13:31 | disposition home or self-care (01) ==
PROVIDERS: Emergency Provider Physician Assistant; PCP Nurse Practitioner Family
DX: R10.9 Unspecified abdominal pain (principal); Z79.82 Long term (current) use of aspirin; Z79.02 Long term (current) use of antithrombotics/antiplatelets; K57.30 Diverticulosis of large intestine without perforation or abscess without bleeding; I10 Essential (primary) hypertension; Z87.891 Personal history of nicotine dependence
CPT/HCPCS: 36415; 51798; 74176; 80053; 81003; 83690; 85025; 99284

== ENCOUNTER 2022-08-25 09:34 | Outpatient (CLI) | payer MEDICARE, OTHER, SELFPAY ==
--- NOTE | 2022-08-25 | ECG_ITS ---
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 Interpretive Statements NAME OF STUDY: LEXISCAN SESTAMIBI STRESS TEST INDICATION: [Chest Pain] Procedure: At the baseline, the blood pressure was 130/58 mmHg with a heart rate of 4 bpm. The electrocardiogram showed sinus bradycardia, normal axis with normal ST and T's. The Lexiscan was infused over a period of 20 seconds. A total of 0.4 mg of Lexiscan was infused. The stress phase was continued for a total of 5 minutes. Heart rate was at the end of stress phase was 62 bpm and a blood pressure of 138/65 mmHg. The EKG at the peak infusion revealed normal sinus rhythm with no significant ST-T wave changes. Sestamibi was injected 20 seconds after the Lexiscan infusion. Blood pressure at the end of recovery phase was 113/56 mmHg with a heart rate of 60 bpm. Conclusion: 1. Normal EKG response to Lexiscan infusion 2. No Lexiscan induced chest pain or cardiac arrhythmia. 3. Normal blood pressure and heart rate response. 4. Sestamibi/sestamibi perfusion scan pending; see separate report. Electronically Signed On 09-13-2022 20:48:23 CDT by Tone Lemon M.D. [id number]
[2022-08-25 09:56] VITALS: BMI 23.6
--- NOTE | 2022-08-25 09:57 | NMCV_ITS ---
NM marvin perf SPECT r/s* [id number] Lasha Maher Age: 77 Gender: M : 1945 Exam Date: 08/25/2022 09:57 Ordering Phys: Tone Lemon M.D ([email or web address]) Technologist: KODY Nuno Exam Location: [facility] Indications: CHEST PAIN STRESS TEST [facility] IMAGE PROTOCOL Rest/Stress 1 Lexiscan Day Radiopharmaceutical Dose (mCi) Administration Site Administered by Rest: Tc-99m 10.8 IV KODY Garduno Sestamibi Stress:Tc-99m 32.7 IV KODY Garduno Sestamibi Rest: 25-Aug-2022 60 Discovery 630 Stress: 25-Aug-2022 30 Discovery 630 0.4mg Lexiscan. Supine position only as patient was unable to lay prone. SPECT RESULTS Technical Quality: Excellent Raw Data Analysis: Normal Image Corrections: No attenuation or motion correction applied Summed Stress Score: 1 Summed Rest Score: 0 Summed Difference Score: 1 PERFUSION FINDINGS SPECT images demonstrate homogeneous tracer distribution throughout the myocardium. FUNCTIONAL RESULTS (calculated via Gated SPECT) Stress Image LV EF (%): 71 Stress EDV (mL):96 TID: 1.11 Stress ESV (mL):28 FUNCTIONAL FINDINGS: There is normal left ventricular systolic function. IMPRESSIONS 1. Normal myocardial perfusion imaging with no evidence of ischemia 2. LV systolic function is normal. Tone Lemon MD (Electronically Signed) Final Date: 27 Aug 2022 16:59 S
[2022-08-25] MEDS: regadenoson 0.4 Mg/5 ml Syringe IVP (11:50)
[2022-08-25 12:07] VITALS: BP 120/64; PULSE 65
== END 2022-08-25 09:35 | disposition home or self-care (01) ==
LOC: CDL 09:36
PROVIDERS: PCP Nurse Practitioner Family; Visit Provider Internal Medicine
DX: R07.9 Chest pain, unspecified (principal)
CPT/HCPCS: 36415; 78452; 93017; 96374; A9500; J2785

== ENCOUNTER 2022-12-25 16:28 | Outpatient (CLI) | payer MEDICARE, OTHER, SELFPAY | END 2022-12-25 16:29 | disposition home or self-care (01) | LOC: LAB 16:32 | PROVIDERS: PCP Nurse Practitioner Family; Visit Provider Internal Medicine | DX: I34.0 Nonrheumatic mitral (valve) insufficiency (principal); I10 Essential (primary) hypertension | CPT/HCPCS: 80048; 83880; 99214 ==

== ENCOUNTER 2023-01-27 07:25 | Outpatient (CLI) | payer MEDICARE, OTHER, SELFPAY ==
[2023-01-27 08:21] LABS: Anion Gap 14.1 (5-19); Blood Urea Nitrogen 24 mg/dL (8-23); Calcium 9.2 mg/dL (8.5-10.5); Carbon Dioxide 25 mmol/L (22-29); Chloride 103 mmol/L (98-107); Glucose 118 mg/dL (65-115); NT Pro B Type Natriuretic Pept 408 pg/mL (0-450); Osmolality Calculated 291 mOsm/kg (285-295); Potassium 4.1 mmol/L (3.5-5.1); Sodium 138 mmol/L (136-145)
== END 2023-01-27 07:26 | disposition home or self-care (01) ==
PROVIDERS: PCP Nurse Practitioner Family; Visit Provider Internal Medicine
DX: I34.0 Nonrheumatic mitral (valve) insufficiency (principal); I35.0 Nonrheumatic aortic (valve) stenosis; I10 Essential (primary) hypertension
CPT/HCPCS: 36415; 80048; 83880

== ENCOUNTER → 2023-03-30 15:21 | Outpatient (BNVA) | payer MEDICARE, OTHER, SELFPAY | PROVIDERS: PCP Nurse Practitioner Family; Referring Provider Internal Medicine; Visit Provider Internal Medicine Pulmonary Disease | DX: R06.09 Other forms of dyspnea (principal); R06.02 Shortness of breath; J84.9 Interstitial pulmonary disease, unspecified; J82.83 Eosinophilic asthma; Z87.891 Personal history of nicotine dependence; R06.6 Hiccough | CPT/HCPCS: 36415; 82785; 85025; 85651; 86003; 86140; 86225; 86235; 99204 ==

== ENCOUNTER 2023-04-22 13:15 | Outpatient (CLI) | payer MEDICARE, OTHER, SELFPAY | END 2023-04-22 13:16 | disposition home or self-care (01) | PROVIDERS: PCP Nurse Practitioner Family; Visit Provider Internal Medicine Pulmonary Disease | DX: R06.9 Unspecified abnormalities of breathing (principal) | CPT/HCPCS: 94010; 94618; 94726; 94729 ==

== ENCOUNTER → 2023-09-24 14:18 | Outpatient (BNVA) | payer MEDICARE, SELFPAY | PROVIDERS: PCP Nurse Practitioner Family; Visit Provider Internal Medicine | DX: I34.0 Nonrheumatic mitral (valve) insufficiency (principal); I35.0 Nonrheumatic aortic (valve) stenosis; I10 Essential (primary) hypertension | CPT/HCPCS: 36415; 80048; 83880 ==

== ENCOUNTER 2023-10-12 14:04 | Outpatient (CLI) | payer MEDICARE, SELFPAY ==
--- NOTE | 2023-10-12 14:15 | XRR_ITS ---
PROCEDURE INFORMATION: Exam: XR Left Finger(s) Exam date and time: 10/12/2023 2:20 PM Age: 78 years old Clinical indication: Injury or trauma; Other: Cat bite; Hand and finger; Index finger; Left; Injury date: 3 weeks ago; Additional info: Celulitis of left finger/cat bite TECHNIQUE: Imaging protocol: Radiologic exam of the left fingers. Views: Minimum 2 views. COMPARISON: No relevant prior studies available. FINDINGS: Bones/joints: Small benign cyst head of the proximal phalanx. Otherwise, unremarkable. Soft tissues: Diffuse soft tissue swelling. No radiopaque foreign body. Otherwise, unremarkable. XR/XR finger LT min 2V [id number] IMPRESSION: Diffuse soft tissue swelling. No other acute findings.
== END 2023-10-12 14:05 | disposition home or self-care (01) ==
LOC: RAD 14:14
PROVIDERS: PCP Nurse Practitioner Family; Visit Provider Nurse Practitioner Family
DX: L03.012 Cellulitis of left finger (principal); M85.442 Solitary bone cyst, left hand
CPT/HCPCS: 73140

== ENCOUNTER → 2024-07-15 10:07 | Outpatient (BNVA) | payer MEDICARE, OTHER, SELFPAY | PROVIDERS: PCP Nurse Practitioner Family; Visit Provider Internal Medicine | DX: R07.9 Chest pain, unspecified (principal); I34.0 Nonrheumatic mitral (valve) insufficiency; I10 Essential (primary) hypertension; I63.9 Cerebral infarction, unspecified; I35.0 Nonrheumatic aortic (valve) stenosis | CPT/HCPCS: 36415; 80048; 83880; 99214 ==

== ENCOUNTER 2024-08-12 14:03 | Outpatient (CLI) | payer OTHER, MEDICARE, SELFPAY ==
--- NOTE | 2024-08-12 14:07 | USR_ITS ---
PROCEDURE INFORMATION: Exam: US Duplex Bilateral Lower Extremity Arteries Exam date and time: 08/12/2024 2:14 PM Age: 79 years old Clinical indication: Pain; Leg, lower; Bilateral; Additional info: Bilat leg pain TECHNIQUE: Imaging protocol: Real-time ultrasound scan of the arteries of the bilateral lower extremities with 2-D fleming scale, color Doppler flow and spectral waveform analysis. Images documented and saved. COMPARISON: CT kidney stone [id number] 07/25/2022 10:26 AM FINDINGS: Right external iliac artery: No visible luminal narrowing. Normal waveform. Peak velocity 146 cm/second. Right common femoral artery: No visible luminal narrowing. Normal waveform. Peak velocity 176 cm/s. Right superficial femoral artery: No visible luminal narrowing. Normal waveform. Peak velocity 111 cm/s. Right popliteal artery: Normal waveform. No visible luminal narrowing. Peak velocity 68 cm/s. Right calf/foot arteries: Right posterior tibial and dorsalis pedis arteries are patent and demonstrate normal waveforms. Right brachial pressure: 171/84 mmHg. Right dorsalis pedis and posterior tibial arteries are noncompressible. Right EDUARDA cannot be calculated. Left external iliac artery: No visible luminal narrowing. Normal waveform. Peak velocity 73 cm/second. Left common femoral artery: Left common femoral artery. No visible luminal narrowing. Normal waveform. Peak velocity 87 cm/s. Left superficial femoral artery: No visible luminal narrowing. Normal waveform. Peak velocity 107 cm/s. Left popliteal artery: Normal waveform. No visible luminal narrowing. Peak velocity 64 cm/s. Left calf/foot arteries: Left posterior tibial and dorsalis pedis arteries are patent and demonstrate normal waveforms. Left brachial pressure: 166/72 mmHg. Left dorsalis pedis artery pressure 167 mmHg. Left posterior tibial artery pressure 174 mmHg. Left EDUARDA is 1.0. US/[place] [id number] IMPRESSION: 1. Mildly elevated velocity with normal waveform in the right common femoral artery. No visible luminal narrowing. 30-49% stenosis. 2. No sign of hemodynamically significant stenosis elsewhere.
--- NOTE | 2024-08-12 15:00 | USCV_ITS ---
Lasha Maher Age: 79 Gender: M : 1945 Exam Date: 08/12/2024 14:54 Ordering Phys: Tone Lemon M.D ([email or web address]) Technologist: MYLES Exam Location: [facility] [place] Indication: SoB BP: 132 / 82 HR: 62 Rhythm: Sinus Technical Quality: Adequate MEASUREMENTS (Male / Female) Normal Values 2D ECHO LV Diastolic Diameter PLAX 4.5 cm 4.2 - 5.9 / 3.9 - 5.3 cm IVS Diastolic Thickness 1.2 cm 0.6 - 1.0 / 0.6 - 0.9 cm IVS Systolic Thickness 2.2 cm LVPW Diastolic Thickness 1.1 cm 0.6 - 1.0 / 0.6 - 0.9 cm LVPW Systolic Thickness 1.9 cm LVOT Diameter 1.7 cm LV Ejection Fraction 2D Teich 58.2 % LV Ejection Fraction MOD 4C 63.5 % LV Ejection Fraction MOD 2C 51.9 % LV Ejection Fraction 2C AL 57.5 % LA Diameter 3.7 cm RA Systolic Volume 4C AL 21.0 ml RA Systolic Volume 4C MOD 19.8 ml LA Sys Volume AL 46.4 cm cubed LA Sys Volume Index AL 24.3 cm cubed/m squared Aorta at Sinotubular Diameter 2.2 cm M-MODE LA Ao Ratio MM 1.3 AV Cusp Separation MM 1.7 cm DOPPLER AV Peak Velocity 233.3 cm/s LVOT Peak Velocity 86.0 cm/s AV Area Cont Eq vti 1.3 cm squared AV Area Cont Eq pk 0.9 cm squared MV Peak Velocity 114.0 cm/s MV Area PHT 4.7 cm squared Mitral E to A Ratio 0.7 TR Peak Velocity 133.0 cm/s TR Peak Gradient 7.1 mmHg TV Peak E Velocity 98.0 cm/s PV Peak Velocity 127.0 cm/s FINDINGS Left Ventricle Left ventricle is normal in size. LV systolic function is normal with EF 55-60%. No regional wall motion abnormalities are seen. Grade 1 diastolic dysfunction. Right Ventricle Normal in size and function Right Atrium Normal in size Left Atrium Normal in size Mitral Valve Structurally normal mitral valve. Mild mitral regurgitation Aortic Valve Structurally normal aortic valve. Mild aortic regurgitation. Mild to moderate aortic stenosis with aortic valve area 1.18 cm squared and mean gradient of 10 mmHg. Tricuspid Valve Insufficient TR jet to calculate RVSP. Pulmonic Valve Not well-visualized. Pericardium Normal. Aorta Normal in size IVC Not well visualized CONCLUSIONS LV systolic function is normal with EF of 55-60%. Grade 1 diastolic dysfunction. Mild mitral regurgitation Mild aortic regurgitation. Mild to moderate aortic stenosis. Compared to prior echocardiogram from 2021, no significant changes are seen. Tone Lemon MD (Electronically Signed) Final Date: 28 Aug 2024 14:28 S
[2024-08-12 16:00] LABS: Anion Gap 15.2 (5-19); Blood Urea Nitrogen 14 mg/dL (8-23); Calcium 8.9 mg/dL (8.5-10.5); Carbon Dioxide 25 mmol/L (22-29); Chloride 107 mmol/L (98-107); Glucose 91 mg/dL (65-115); NT Pro B Type Natriuretic Pept 791 pg/mL (0-450); Osmolality Calculated 296 mOsm/kg (285-295); Potassium 4.2 mmol/L (3.5-5.1); Sodium 143 mmol/L (136-145)
== END 2024-08-12 14:04 | disposition home or self-care (01) ==
PROVIDERS: PCP Nurse Practitioner Family; Visit Provider Internal Medicine
DX: R07.9 Chest pain, unspecified (principal); I34.0 Nonrheumatic mitral (valve) insufficiency; I10 Essential (primary) hypertension; I35.0 Nonrheumatic aortic (valve) stenosis; R93.1 Abnormal findings on diagnostic imaging of heart and coronary circulation; I35.1 Nonrheumatic aortic (valve) insufficiency
CPT/HCPCS: 36415; 80048; 83880; 93306; 93925

== ENCOUNTER → 2024-11-29 16:40 | Outpatient (BNVA) | payer MEDICARE, OTHER, SELFPAY | PROVIDERS: PCP Nurse Practitioner Family; Visit Provider Internal Medicine | DX: R06.09 Other forms of dyspnea (principal); I34.0 Nonrheumatic mitral (valve) insufficiency; I35.0 Nonrheumatic aortic (valve) stenosis; I10 Essential (primary) hypertension; R07.9 Chest pain, unspecified; R00.1 Bradycardia, unspecified; Z79.02 Long term (current) use of antithrombotics/antiplatelets; Z79.82 Long term (current) use of aspirin; Z87.891 Personal history of nicotine dependence; Z86.73 Personal history of transient ischemic attack (TIA), and cerebral infarction without residual deficits | CPT/HCPCS: 36415; 80048; 83880; 93005; 99214 ==

== ENCOUNTER 2024-12-06 08:47 | Outpatient (CLI) | payer MEDICARE, OTHER, SELFPAY ==
--- NOTE | 2024-12-06 | ECG_ITS ---
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 Interpretive Statements LEXISCAN: Procedure: At the baseline, the blood pressure was 155/73 mmHg with a heart rate of 52 bpm. The electrocardiogram showed sinus bradycardia, normal axis with normal ST and T's. The Lexiscan was infused over a period of 20 seconds. A total of 0.4 mg of Lexiscan was infused. The stress phase was continued for a total of 5 minutes. Heart rate was at the end of stress phase was 89 bpm and a blood pressure of 118/69 mmHg. The EKG at the peak infusion revealed normal sinus rhythm with no significant ST-T wave changes. Sestamibi was injected 20 seconds after the Lexiscan infusion. Blood pressure at the end of recovery phase was 106 /62 mmHg with a heart rate of 89 bpm. Conclusion: 1. Normal EKG response to Lexiscan infusion 2. No Lexiscan induced chest pain or cardiac arrhythmia. 3. Normal blood pressure and heart rate response. 4. Sestamibi/sestamibi perfusion scan pending; see separate report. Electronically Signed On 12-11-2024 23:29:58 CDT by Tone Lemon M.D. [email or web address]
[2024-12-06 09:04] VITALS: BMI 25.5
--- NOTE | 2024-12-06 09:04 | NMCV_ITS ---
NM marvin perf SPECT r/s* [id number] Lasha Maher Age: 79 Gender: M : 1945 Exam Date: 12/06/2024 09:50 Ordering Phys: Tone Lemon M.D ([email or web address]) Technologist: KODY Nascimento Exam Location: [facility] Indications: cp STRESS TEST Please [facility] IMAGE PROTOCOL Rest/Stress 1 Lexiscan Day Radiopharmaceutical Dose (mCi) Administration Site Administered by Rest: Tc-99m 10.4 IV KODY Nascimento Sestamibi Stress:Tc-99m 32.8 IV KODY Garduno Sestamibi Rest: 06-Dec-2024 60 Discovery 630 Stress: 06-Dec-2024 30 Discovery 630 0.4mg Lexiscan. Images obtained in supine and prone position. SPECT RESULTS Technical Quality: Good Raw Data Analysis: Normal Image Corrections: No attenuation or motion correction applied Summed Stress Score: 0 Summed Rest Score: 0 Summed Difference Score: 0 PERFUSION FINDINGS SPECT images demonstrate homogeneous tracer distribution throughout the myocardium. FUNCTIONAL RESULTS (calculated via Gated SPECT) Stress Image LV EF (%): 65 Stress EDV (mL):105 TID: 0.97 Stress ESV (mL):37 FUNCTIONAL FINDINGS: There is normal left ventricular systolic function. IMPRESSIONS 1. Normal myocardial perfusion imaging with no evidence of ischemia 2. LV systolic function is normal Tone Lemon MD (Electronically Signed) Final Date: 07 December 2024 08:38 S
[2024-12-06 10:38] VITALS: BP 161/72; PULSE 63
== END 2024-12-06 08:48 | disposition home or self-care (01) ==
LOC: CDL 08:49
PROVIDERS: PCP Nurse Practitioner Family; Visit Provider Internal Medicine
DX: R07.9 Chest pain, unspecified (principal); R06.02 Shortness of breath
CPT/HCPCS: 36415; 78452; 93017; 96374; A9500; J2785

== ENCOUNTER → 2025-03-09 14:44 | Outpatient (BNVA) | payer MEDICARE, OTHER, SELFPAY | PROVIDERS: PCP Nurse Practitioner Family; Visit Provider Internal Medicine | DX: I10 Essential (primary) hypertension (principal); Z86.73 Personal history of transient ischemic attack (TIA), and cerebral infarction without residual deficits | CPT/HCPCS: 99213 ==